=== PATIENT | male | born 1960 | race Caucasian/White ===

== ENCOUNTER 2020-10-23 09:19 | Emergency (ER) | payer BC, OTHER ==
--- OUTSIDE RECORDS SUMMARY | 2020-10-23 09:21 | XMS REPORT | Continuity of Care Document ---
:1960 Author Organization [facility] t Address [address] [place] [address] Care Team Providers Name Role Phone Jerardo To DO Attending Clinician Problems This patient has no known problems. Allergies, Adverse Reactions, Alerts This patient has no known allergies or adverse reactions. Medications Ordered Filled Start Stop Current Ordering Indication Dosage Frequency Signature Comments Components Source Medication Medication Date Date Medication? Clinician (SIG) Name Name Diclofenac Diclofenac 2018- 2019- No Mehrdad [address] [facility] Sodium Sodium 02-15 Aide with food Luke s - 00:00: 00:00 or milk Memoria 00 :00 [facility] Aspirin Aspirin Yes Mehrdad [address] [facility] Adult Low Adult Low Aide Luke s - Dose Dose [facility] Atorvastati Atorvastati Yes Mehrdad [address] [facility] n Calcium n Calcium Aide Luke s - [facility] Metoprolol Metoprolol Yes Mehrdad [address] [facility] Succinate Succinate Aide Luke s - ER ER [facility] l [facility] Clinics Olmesartan Olmesartan Yes Mehrdad [address] [facility] Medoxomil Medoxomil Aide Luke s - [facility]oria [facility] ent Clinics Procedures This patient has no known procedures. Encounters Start End Encounter Admission Attending Care Care Encounter Source Date/Time Date/Time Type Type Clinicians Facility Department ID 2020-10-16 2020-10-16 Outpatient [facility] [id number] [facility] 2020-10-11 2020-10-11 Outpatient [facility] [id number] [facility] 2020-09-27 2020-09-27 Outpatient [facility] [id number] [facility] 2020-07-07 2020-07-07 Emergency [facility] [id number] 16:50:00 17:37:00 Vicki Browne [id number] [place] [id number] [place] [id number] 2019-02-15 2019-02-15 [facility] [id number] 09:00:00 09:00:00 [facility] Clinics 2018-09-03 2018-09-03 [facility] [id number] 11:22:00 11:22:00 [facility] Out[facility] Clinics 2018-08-11 2018-08-11 [facility] [id number] [address] 10:00:00 10:00:00 [facility] Out[facility] Clinics 2018-02-09 2018-02-09 [facility] [id number] 10:00:00 10:00:00 [facility] Out[facility] Clinics Results This patient has no known results.
[2020-10-23 10:08] LABS: Absolute Lymphocytes (CBC) 0.5 K/uL (0.7-4.9); Basophils % 0.2 % (0-1.3); Hematocrit 33.1 % (39.6-49.0); Lymphocytes % 11.8 % (15.3-44.8); RBC Red Blood Cell Count 4.57 M/uL (4.33-5.43)
[2020-10-23] MEDS ORDERED: ONDANSETRON 4 MG/2 ML VIAL ONE (10:19)
[2020-10-23 10:23] LABS: Protime INR 1.26
[2020-10-23 10:29] LABS: ALT/SGPT 27 U/L (12-78); AST/SGOT 26 U/L (15-37); Albumin 3.4 g/dL (3.4-5.0); Alkaline Phosphatase 103 U/L (45-117); BUN Blood Urea Nitrogen 15 mg/dL (7-18); Bicarbonate 26 mmol/L (21-32); Bilirubin Direct 0.1 mg/dL (0-0.2); Bilirubin Total 0.4 mg/dL (0.2-1.0); CKMB Creatine Kinase MB < 1.0 ng/mL (0.3-3.6); Creatine Phosphokinase 69 U/L (39-308); Glucose Level 123 mg/dL (74-106); Lipase 476 U/L (73-393); Magnesium 2.1 mg/dL (1.8-2.4); Potassium 4.3 mmol/L (3.5-5.1); Protein, Total 7.6 g/dL (6.4-8.2); Sodium Level 133 mmol/L (136-145); Troponin (Emerg Dept Use Only) < 0.02 ng/mL (0.0-0.045)
[2020-10-23] MEDS ORDERED: NA CHLORIDE 0.9% 1,000 ML ONE (10:36)
--- NOTE | 2020-10-23 11:26 | EDPHYS ---
Physician Documentation [facility] Name: Omari Whitfield Age: 60 yrs Sex: Male : 1960 Arrival Date: 10/23/2020 Time: 09:24 Bed 16 Private MD: ED Physician Berny Marvin HPI: 10/23 10:34 This 60 yrs old Male presents to ER via EMS with complaints of Syncope, kb Nausea. 10:34 The patient has experienced near-syncope, felt dizzy. Onset: The symptoms/episode kb began/occurred just prior to arrival. Duration: This was a single episode, that lasted 1 minute(s). Context: the episode(s) was witnessed, by a significant other, occurred at home, occurred while the patient was walking, Just prior to the episode the patient experienced no apparent symptoms. Associated injury: The patient did not suffer any apparent associated injury. Associated signs and symptoms: Pertinent positives: dizziness, nausea. Current symptoms: Currently, the patient is not experiencing any symptoms. The patient has not experienced similar symptoms in the past. The patient has not recently seen a physician. Pt reports he was exposed to covid last week. Has had nausea, fatigue, and cough for a few days. States the cough is normal for him this time of year due to allergies. States he was walking through the house this morning and got dizzy, felt like he may pass out. States his brought him a chair and a cool cloth that helped the symptoms. States he had some dizziness last week as well, but more when he changed positions. Denies loc. . Historical: - Allergies: 09:30 No Known Allergies; ss - Home Meds: 09:30 Metoprolol Tartrate Oral [Active]; Benicar oral oral [Active]; unknown cholesterol ss medication [Active]; - PMHx: 09:30 Hypertension; High Cholesterol; ss - PSHx: 09:30 back surgery; ss - Immunization history:: Adult Immunizations unknown. - Social history:: Smoking status: Patient denies any tobacco usage or history of. ROS: 10:33 Cardiovascular: Negative for chest pain, palpitations, and edema, MS/Extremity: kb Negative for injury and deformity, Skin: Negative for injury, rash, and discoloration. 10:33 Constitutional: Positive for fatigue, malaise. 10:33 Respiratory: Positive for cough. 10:33 Abdomen/GI: Positive for nausea. 10:33 Neuro: Positive for near syncope. Exam: 10:33 Constitutional: This is a well developed, well nourished patient who is awake, alert, kb and in no acute distress. Head/Face: Normocephalic, atraumatic. Cardiovascular: Regular rate and rhythm with a normal S1 and S2. No gallops, murmurs, or rubs. No pulse deficits. Respiratory: Respirations even and unlabored. No increased work of breathing, no retractions or nasal flaring. Abdomen/GI: Soft, non-tender. No distention Skin: Warm, dry with normal turgor. Normal color. MS/ Extremity: Pulses equal, no cyanosis. Neurovascular intact. Full, normal range of motion. Neuro: Awake and alert, GCS 15, oriented to person, place, time, and situation. Moves all extremities. Normal gait. Vital Signs: 09:25 BP 128 / 83; Pulse 87; Resp 16; Temp 99.3(O); Pulse Ox 97% ; Weight 97.52 kg; Height 6 ss ft. 1 in. (185.42 cm); Pain 0/10; 10:28 BP 127 / 76 Supine; Pulse 87; hb 10:28 BP 117 / 81 Sitting; Pulse 82; hb 10:28 BP 92 / 57 Standing; Pulse 87; hb 11:42 BP 143 / 74; Pulse 81; Resp 20; Pulse Ox 98% ; sv 09:25 Body Mass Index 28.37 (97.52 kg, 185.42 cm) ss MDM: 09:25 Patient medically screened. kb 09:52 Data reviewed: vital signs, nurses notes. kb 10:29 Data interpreted: Pulse oximetry: on room air is 97 %. Interpretation: normal. kb 11:24 Counseling: I had a detailed discussion with the patient and/or guardian regarding: the kb historical points, exam findings, and any diagnostic results supporting the discharge/admit diagnosis, lab results, the need for outpatient follow up, a family practitioner, to return to the emergency department if symptoms worsen or persist or if there are any questions or concerns that arise at home. 11:30 ED course: Pt continues to deny abd pain. Reports some joint pains and requests kb toradol. Pt educated on increase in lipase and to return for worsening symptoms, abd pain, inability to tolerate PO intake. Verbal understanding received. . 10/23 09:34 Order name: Basic Metabolic Panel kb 10/23 09:34 Order name: CBC with Diff kb 10/23 09:34 Order name: Ckmb kb 10/23 09:34 Order name: CPK kb 10/23 09:34 Order name: Hepatic Function kb 10/23 09:34 Order name: Lipase kb 10/23 09:34 Order name: Magnesium kb 10/23 09:34 Order name: Protime (+inr); Complete Time: 11:02 kb 10/23 09:34 Order name: Ptt, Activated; Complete Time: 11:02 kb 10/23 09:34 Order name: Troponin (emerg Dept Use Only); Complete Time: 10:30 kb 10/23 09:34 Order name: Basic Metabolic Panel; Complete Time: 10:30 EDMS 10/23 09:34 Order name: CBC with Automated Diff; Complete Time: 10:26 EDMS 10/23 09:34 Order name: CKMB Creatine Kinase MB; Complete Time: 10:30 EDMS 10/23 09:34 Order name: EKG; Complete Time: 09:34 kb 10/23 09:34 Order name: Cardiac monitoring; Complete Time: 10:27 kb 10/23 09:34 Order name: EKG - Nurse/Tech; Complete Time: 10:27 kb 10/23 09:34 Order name: IV Saline Lock; Complete Time: 10:00 kb 10/23 09:34 Order name: Labs collected and sent; Complete Time: 10:00 kb 10/23 09:34 Order name: NPO; Complete Time: 10:00 kb 10/23 09:34 Order name: O2 Per Protocol; Complete Time: 10:00 kb 10/23 09:34 Order name: O2 Sat Monitoring; Complete Time: 10:00 kb 10/23 09:34 Order name: Creatine Phosphokinase; Complete Time: 10:30 EDMS 10/23 09:34 Order name: Liver (Hepatic) Function; Complete Time: 10:30 EDMS 10/23 09:34 Order name: Lipase; Complete Time: 10:30 EDMS 10/23 09:34 Order name: Magnesium; Complete Time: 10:30 EDMS 10/23 11:23 Order name: SARS-COV-2 RT PCR; Complete Time: 11:24 EDMS 10/23 09:34 Order name: Orthostatics; Complete Time: 10:27 kb Administered Medications: 10:28 Drug: Zofran (Ondansetron) 4 mg Route: IVP; Site: left antecubital; sv 11:41 Follow up: Response: No adverse reaction sv 10:28 Drug: NS 0.9% 1000 ml Route: IV; Rate: 1000 ml; Site: left antecubital; sv 11:43 Follow up: Response: No adverse reaction; IV Status: Completed infusion; IV Intake: sv 800ml 11:35 Drug: TORadol - Ketorolac 15 mg Route: IVP; Site: left antecubital; sv 11:41 Follow up: Response: No adverse reaction sv Disposition: 15:13 Co-signature as Attending Physician, Berny Marvin MD. rn Disposition: 10/23/20 11:24 Discharged to Home. Impression: Coronavirus infection, unspecified. - Condition is Stable. - Discharge Instructions: Viral Respiratory Infection, Owih-Uu-Axcc, COVID-19. - Prescriptions for Zofran 4 mg Oral Tablet - take 1 tablet by ORAL route every 6 hours As needed; 20 tablet. - Medication Reconciliation Form, Thank You Letter, Antibiotic Education, Prescription Opioid Use form. - Follow up: Emergency Department; When: As needed; Reason: Worsening of condition. Follow up: Private Physician; When: 2 - 3 days; Reason: Recheck today's complaints, Continuance of care, Re-evaluation by your physician. Signatures: Dispatcher [employer] [facility] Tianna Barnes, DIRECTOR OF CONVENTION SERVICES-C DIRECTOR OF CONVENTION SERVICES-CkJulieta Winston RN RN sv Nieto, Roman, MD MD rn Smirch, Shelby, RN RN Corrections: (The following items were deleted from the chart) 10: 09:34 CORONAVIRUS+BRZ ordered. [facility] 11:44 11:24 10/23/2020 11:24 Discharged to Home. Impression: Coronavirus infection, sv unspecified. Condition is Stable. Forms are Medication Reconciliation Form, Thank You Letter, Antibiotic Education, Prescription Opioid Use. Follow up: Emergency Department; When: As needed; Reason: Worsening of condition. Follow up: Private Physician; When: 2 - 3 days; Reason: Recheck today's complaints, Continuance of care, Re-evaluation by your physician. kb
--- NOTE | 2020-10-23 11:26 | ER ---
Nurse's Notes [facility] Name: Omari Whitfield Age: 60 yrs Sex: Male : 1960 Arrival Date: 10/23/2020 Time: 09:24 Bed 16 Private MD: Diagnosis: Coronavirus infection, unspecified Presentation: 10/23 09:25 Chief complaint: Patient states: near syncopal episode this morning. Fatigue and nausea ss that began 3 days ago. Denies cough/ fever. Pt reports that a week ago he had a known exposure to COVID. Coronavirus screen: Client denies travel out of the [place] in the last 14 days. Ebola Screen: Patient denies exposure to infectious person. Patient denies travel to an Ebola-affected area in the 21 days before illness onset. Initial Sepsis Screen: Does the patient meet any 2 criteria? No. Patient's initial sepsis screen is negative. Does the patient have a suspected source of infection? No. Patient's initial sepsis screen is negative. Risk Assessment: Do you want to hurt yourself or someone else? Patient reports no desire to harm self or others. Onset of symptoms was September 19, 2020. 09:25 Method Of Arrival: EMS: [facility] ss 09:25 Acuity: GETACHEW 3 ss Historical: - Allergies: :30 No Known Allergies; ss - Home Meds: 09:30 Metoprolol Tartrate Oral [Active]; Benicar oral oral [Active]; unknown cholesterol ss medication [Active]; - PMHx: 09:30 Hypertension; High Cholesterol; ss - PSHx: 09:30 back surgery; ss - Immunization history:: Adult Immunizations unknown. - Social history:: Smoking status: Patient denies any tobacco usage or history of. Screenin:34 Abuse screen: Denies threats or abuse. Denies injuries from another. Nutritional ss screening: No deficits noted. Tuberculosis screening: Never had TB. Fall Risk No fall in past 12 months (0 pts). Secondary diagnosis (15 points) near syncope. IV access (20 points). Ambulatory Aid- None/Bed Rest/Nurse Assist (0 pts). Gait- Normal/Bed Rest/Wheelchair (0 pts) Mental Status- Oriented to own ability (0 pts). Assessment: 09:34 General: Appears in no apparent distress. Behavior is calm, cooperative, Reports ss fatigue for 2-3 days, Denies fever, chills. Pain: Denies pain. Neuro: Level of Consciousness is awake, alert, obeys commands, Oriented to person, place, time, situation, Supervisor Correspondence Section are equal bilaterally Moves all extremities. Full function Gait is steady, Speech is normal, Facial symmetry appears normal, Pupils are PERRLA, Reports dizziness, since this morning when talking. Had to stop and lean against wall. grabbed a chair and a cool rag and it helped his symptoms. Cardiovascular: Capillary refill < 3 seconds is brisk in bilateral fingers Patient's skin is warm and dry. Chest pain is denied. Respiratory: Airway is patent Trachea midline Respiratory effort is even, unlabored, Respiratory pattern is regular, symmetrical. GI: Patient currently denies abdominal pain, diarrhea, nausea, vomiting. : No signs and/or symptoms were reported regarding the genitourinary system. EENT: Nares are clear Oral mucosa is moist. Derm: Skin is intact, is healthy with good turgor, Skin is dry, Skin is pink, warm \T\ dry. normal. Musculoskeletal: Circulation, motion, and sensation intact. Range of motion: intact in all extremities, Swelling absent. 10:29 Reassessment: Patient appears in no apparent distress at this time. Pt reported some hb dizziness while standing during orthostatics. REBECCA Wynn notified. Urinal at bedside. Pt verbalizes understanding use of urinal and reason for obtaining UA. 10:30 Reassessment: Patient appears in no apparent distress at this time. No changes from sv previously documented assessment. Patient and/or family updated on plan of care and expected duration. Pain level reassessed. Patient is alert, oriented x 3, equal unlabored respirations, skin warm/dry/pink. PT c/o dizziness when changing positions, not when laying in the bed. 11:42 Reassessment: Patient appears in no apparent distress at this time. Patient and/or sv family updated on plan of care and expected duration. Pain level reassessed. Patient is alert, oriented x 3, equal unlabored respirations, skin warm/dry/pink. Vital Signs: 09:25 BP 128 / 83; Pulse 87; Resp 16; Temp 99.3(O); Pulse Ox 97% ; Weight 97.52 kg; Height 6 ss ft. 1 in. (185.42 cm); Pain 0/10; 10:28 BP 127 / 76 Supine; Pulse 87; hb 10:28 BP 117 / 81 Sitting; Pulse 82; hb 10:28 BP 92 / 57 Standing; Pulse 87; hb 11:42 BP 143 / 74; Pulse 81; Resp 20; Pulse Ox 98% ; sv 09:25 Body Mass Index 28.37 (97.52 kg, 185.42 cm) ss ED Course: 09:24 Patient arrived in ED. ss 09:25 Tianna Barnes FNP-C is PHCP. kb 09:25 Berny Marvin MD is Attending Physician. kb 09:29 Triage completed. ss 09:30 Arm band placed on right wrist. ss 09:34 Patti Rogers, SHERRON is Primary Nurse. ss 09:34 Patient has correct armband on for positive identification. Bed in low position. Call ss light in reach. Side rails up X 1. quality assurance monitor on. Pulse ox on. NIBP on. Warm blanket given. 09:45 Inserted saline lock: 20 gauge in left antecubital area, using aseptic technique. Blood ss collected. Patient maintains SpO2 saturation greater than 95% on room air. 09:59 Primary Nurse role handed off by Patti Rogers, SHERRON sv 09:59 Julieta Lauren, SHERRON is Primary Nurse. sv 10:00 Basic Metabolic Panel Sent. sv 10:00 CBC with Diff Sent. sv 10:00 Ckmb Sent. sv 10:00 CPK Sent. sv 10:00 Hepatic Function Sent. sv 10:01 Lipase Sent. sv 10:01 Magnesium Sent. sv 11:43 No provider procedures requiring assistance completed. IV discontinued, intact, sv bleeding controlled, No redness/swelling at site. Pressure dressing applied. Administered Medications: 10:28 Drug: Zofran (Ondansetron) 4 mg Route: IVP; Site: left antecubital; sv 11:41 Follow up: Response: No adverse reaction sv 10:28 Drug: NS 0.9% 1000 ml Route: IV; Rate: 1000 ml; Site: left antecubital; sv 11:43 Follow up: Response: No adverse reaction; IV Status: Completed infusion; IV Intake: sv 800ml 11:35 Drug: TORadol - Ketorolac 15 mg Route: IVP; Site: left antecubital; sv 11:41 Follow up: Response: No adverse reaction sv Intake: 11:43 IV: 800ml; Total: 800ml. sv Outcome: 11:24 Discharge ordered by . kb 11:43 Discharged to home ambulatory. sv 11:43 Condition: stable 11:43 Discharge instructions given to patient, Instructed on discharge instructions, follow up and referral plans. medication usage, Demonstrated understanding of instructions, follow-up care, medications, Prescriptions given X 1. 11:44 Patient left the ED. sv Signatures: Tianna Barnes, ANGEL-Casey ORTIZ-Julieta Nye, RN RN sv Patti Rogers, SHERRON RN ss Kanika Jernigan, RN RN hb
[2020-10-23] MEDS ORDERED: KETOROLAC 30 MG/ML INJ ONE (11:50)
[2020-10-23 12:10] VITALS: BP 143/74
[2020-10-23 12:11] VITALS: O2SAT 98
[2020-10-23 12:40] VITALS: TEMP 97.7
== END 2020-10-23 11:44 | disposition home or self-care (01) ==
LOC: ER 09:19
DX: U07.1 COVID-19 (principal); I10 Essential (primary) hypertension; E78.00 Pure hypercholesterolemia, unspecified
CPT/HCPCS: 93005; 85025; 80048; 36415; 83735; 82550; 85610; 80076; 85730; 84484; 82553; 83690; U0003; J7030; J2405; 96361; 96374; 96375; 99285

== ENCOUNTER 2020-10-27 11:08 | Inpatient (IN) | payer BC ==
--- OUTSIDE RECORDS SUMMARY | 2020-10-27 11:11 | XMS REPORT | Continuity of Care Document ---
:1960 Author Organization [facility] t Address [address] [place] [address] Care Team Providers Name Role Phone Jerardo To DO Attending Clinician Problems This patient has no known problems. Allergies, Adverse Reactions, Alerts This patient has no known allergies or adverse reactions. Medications Ordered Filled Start Stop Current Ordering Indication Dosage Frequency Signature Comments Components Source Medication Medication Date Date Medication? Clinician (SIG) Name Name Diclofenac Diclofenac 2019- No Mehrdad [address] [facility] Sodium Sodium 02-15 Adie with food Luke s - 00:00: 00:00 or milk [facility]oria 00 :00 [facility] Aspirin Aspirin Yes Mehrdad [address] [facility] Adult Low Adult Low Aide Luke s - Dose Dose [facility] Atorvastati Atorvastati Yes Mehrdad [address] [facility] n Calcium n Calcium Aide Luke s - [facility] Metoprolol Metoprolol Yes Mehrdad [address] [facility] Succinate Succinate Aide Luke s - ER ER Memoria l [facility] ent Clinics Olmesartan Olmesartan Yes Mehrdad [address] [facility] Medoxomil Medoxomil Aide Luke s - [facility] Procedures This patient has no known procedures. Encounters Start End Encounter Admission Attending Care Care Encounter Source Date/Time Date/Time Type Type Clinicians Facility Department ID 2020-10-16 2020-10-16 Outpatient [facility] [id number] [facility] 2020-10-11 2020-10-11 Outpatient [facility] [id number] [facility] 2020-09-27 2020-09-27 Outpatient [facility] [id number] [facility] 2020-07-07 2020-07-07 Emergency [facility] [id number] 16:50:00 17:37:00 Vicki Browne [id number] [place] [id number] [place] [id number] 2019-02-15 2019-02-15 [facility] [id number] [facility] 09:00:00 09:00:00 [facility] Out[facility] Clinics 2018-09-03 2018-09-03 [facility] [id number] [facility] 11:22:00 11:22:00 [facility] Clinics 2018-08-11 2018-08-11 [facility] [id number] [facility] 10:00:00 10:00:00 [facility] Out[facility] Clinics 2018-02-09 2018-02-09 [facility] [id number] [facility] 10:00:00 10:00:00 [facility] Clinics Results This patient has no known results.
[2020-10-27] MEDS ORDERED: NA CHLORIDE 0.9% 1,000 ML ONE (11:37)
[2020-10-27 11:40] LABS: Absolute Lymphocytes (CBC) 0.3 K/uL (0.7-4.9); Basophils % 0.1 % (0-1.3); Hematocrit 32.1 % (39.6-49.0); Lymphocytes % 3.4 % (15.3-44.8); MPV 8.9 fL (7.6-11.3); RBC Red Blood Cell Count 4.44 M/uL (4.33-5.43)
[2020-10-27] MEDS ORDERED: ONDANSETRON 4 MG/2 ML VIAL ONE ×2 (11:41→14:09)
[2020-10-27 11:55] LABS: Protime INR 1.26
--- NOTE | 2020-10-27 11:56 | RAD REPORT ---
EXAM DESCRIPTION: RAD - Chest Single View - 10/27/2020 11:45 am CLINICAL HISTORY: Cough;Dyspnea, COVID positive COMPARISON: July 2018 TECHNIQUE: AP portable chest image was obtained 10/27/2020 11:45 am . FINDINGS: Lung volumes are low. Patchy interstitial and alveolar opacities are present in both lung samano with relative sparing of the left upper lung field. Heart size matches comparison. Central vas culature within normal limits. Trachea is midline. No measurable pleural effusion and no pneumothorax . No acute bony abnormality seen. No acute aortic findings suspected. IMPRESSION: Patchy bilateral lung space opacification consistent with a bilateral mild COVID-19 pneu monia.
--- NOTE | 2020-10-27 11:56 | EDPHYS ---
Physician Documentation [facility] Name: Omari Whitfield Age: 60 yrs Sex: Male : 1960 Arrival Date: 10/27/2020 Time: 11:10 Bed 6 Private MD: ED Physician Kam Gustafson HPI: 10/27 11:40 This 60 yrs old Male presents to ER via Ambulatory with complaints of COVID+, mariia Breathing Difficulty, Fever. 11:40 The patient has shortness of breath at rest, with light activity. Onset: The mariia symptoms/episode began/occurred 5 day(s) ago. Duration: The symptoms are continuous, and are steadily getting worse. The patient's shortness of breath is aggravated by coughing, exertion, light activity, prone position, talking, walking, is alleviated by sitting up, application of supplemental oxygen. Associated signs and symptoms: Pertinent positives: productive cough. Severity of symptoms: At their worst the symptoms were moderate in the emergency department the symptoms are unchanged. The patient has not experienced similar symptoms in the past. Historical: - Allergies: 11:33 No Known Allergies; sv - PMHx: 11:33 High Cholesterol; Hypertension; sv - PSHx: 11:33 back surgery; sv - Immunization history:: Adult Immunizations up to date. - Social history:: Smoking status: . ROS: 11:42 Eyes: Negative for injury, pain, redness, and discharge, ENT: Negative for injury, mariia pain, and discharge, Neck: Negative for injury, pain, and swelling, Cardiovascular: Negative for chest pain, palpitations, and edema, Abdomen/GI: Negative for abdominal pain, nausea, vomiting, diarrhea, and constipation, Back: Negative for injury and pain, : Negative for injury, bleeding, discharge, and swelling, MS/Extremity: Negative for injury and deformity, Skin: Negative for injury, rash, and discoloration, Neuro: Negative for headache, weakness, numbness, tingling, and seizure, Psych: Negative for depression, anxiety, suicide ideation, homicidal ideation, and hallucinations, Allergy/Immunology: Negative for hives, rash, and allergies, Endocrine: Negative for neck swelling, polydipsia, polyuria, polyphagia, and marked weight changes, Hematologic/Lymphatic: Negative for swollen nodes, abnormal bleeding, and unusual bruising. 11:42 Constitutional: Positive for fever. 11:42 Respiratory: Positive for cough, orthopnea, pleurisy, shortness of breath, at rest. Exam: 11:44 Head/Face: Normocephalic, atraumatic. Eyes: Pupils equal round and reactive to light, mariia extra-ocular motions intact. Lids and lashes normal. Conjunctiva and sclera are non-icteric and not injected. Cornea within normal limits. Periorbital areas with no swelling, redness, or edema. ENT: Nares patent. No nasal discharge, no septal abnormalities noted. Tympanic membranes are normal and external auditory canals are clear. Oropharynx with no redness, swelling, or masses, exudates, or evidence of obstruction, uvula midline. Mucous membranes moist. Neck: Trachea midline, no thyromegaly or masses palpated, and no cervical lymphadenopathy. Supple, full range of motion without nuchal rigidity, or vertebral point tenderness. No Meningismus. Chest/axilla: Normal chest wall appearance and motion. Nontender with no deformity. No lesions are appreciated. Abdomen/GI: Soft, non-tender, with normal bowel sounds. No distension or tympany. No guarding or rebound. No evidence of tenderness throughout. Back: No spinal tenderness. No costovertebral tenderness. Full range of motion. Male : Normal genitalia with no discharge or lesions. Skin: Warm, dry with normal turgor. Normal color with no rashes, no lesions, and no evidence of cellulitis. MS/ Extremity: Pulses equal, no cyanosis. Neurovascular intact. Full, normal range of motion. Neuro: Awake and alert, GCS 15, oriented to person, place, time, and situation. Cranial nerves II-XII grossly intact. Motor strength 5/5 in all extremities. Sensory grossly intact. Cerebellar exam normal. Normal gait. Psych: Awake, alert, with orientation to person, place and time. Behavior, mood, and affect are within normal limits. 11:44 Cardiovascular: Rate: normal, Rhythm: regular, Pulses: Pulses are 4+ in bilateral radial, brachial, femoral, popliteal, posterior tibial and and dorsalis pedis arteries.. Heart sounds: normal, normal S1and S2, no S3 or S4, no murmur, no rub, no gallop, Edema: is not appreciated, JVD: is not appreciated. 11:44 ECG was reviewed by the Attending Physician. 11:44 Musculoskeletal/extremity: DVT Exam: No signs of deep vein thrombosis. no pain, no swelling, no tenderness, negative Homans' sign noted on exam, no appreciated bluish discoloration, no erythema, no increased warmth. Vital Signs: 11:13 BP 132 / 70; Pulse 84; Resp 20; Temp 101.1(O); Pulse Ox 96% on R/A; sv 11:45 BP 134 / 75; Pulse 80; Resp 21; Pulse Ox 97% on R/A; sv 11:58 Weight 91 kg; Height 6 ft. 1 in. (185.42 cm); sv 12:30 BP 132 / 72; Pulse 80; Resp 20; Pulse Ox 97% ; sv 13:15 BP 128 / 72; Pulse 77; Resp 20; Pulse Ox 97% on R/A; sv 14:20 BP 115 / 60; Pulse 81; Resp 23; Pulse Ox 95% on R/A; sv 11:58 Body Mass Index 26.47 (91.00 kg, 185.42 cm) sv MDM: 11:15 Patient medically screened. [facility] 10/27 11:13 Order name: Basic Metabolic Panel mariia 10/27 11:13 Order name: CBC with Diff mariia 10/27 11:13 Order name: LFT's 10/27 11:13 Order name: Magnesium; Complete Time: 12:26 [facility] 10/27 11:13 Order name: NT PRO-BNP; Complete Time: 12:26 [facility] 10/27 11:13 Order name: PT-INR; Complete Time: 12:26 [facility] 10/27 11:13 Order name: Troponin (emerg Dept Use Only); Complete Time: 12:26 [facility] 10/27 11:13 Order name: Blood Culture Adult (2) 10/27 11:13 Order name: Ferritin; Complete Time: 12:26 [facility] 10/27 11:13 Order name: CRP; Complete Time: 12:26 [facility] 10/27 11:14 Order name: Basic Metabolic Panel; Complete Time: 12:26 [facility] 10/27 11:14 Order name: CBC with Automated Diff; Complete Time: 12:26 [facility] 10/27 11:14 Order name: Liver (Hepatic) Function; Complete Time: 12:26 [facility] 10/27 11:43 Order name: CBC Smear Scan; Complete Time: 12:26 [facility] 10/27 13:14 Order name: C-Reactive Protein ED[facility] 10/27 13:14 Order name: C-Reactive Protein EDMS 10/27 13:14 Order name: Comprehensive Metabolic Panel ED[facility] 10/27 13:14 Order name: Comprehensive Metabolic Panel ED[facility] 10/27 13:14 Order name: D-Dimer EDMS 10/27 13:14 Order name: D-Dimer EDMS 10/27 13:14 Order name: Ferritin EDMS 10/27 13:14 Order name: Ferritin EDMS 10/27 13:14 Order name: Lactate EDMS 10/27 13:14 Order name: Lactate EDMS 10/27 13:14 Order name: Lipid Profile EDMS 10/27 13:14 Order name: Lipid Profile EDMS 10/27 13:14 Order name: Magnesium EDMS 10/27 13:14 Order name: Magnesium EDMS 10/27 13:14 Order name: NT PRO-BNP EDMS 10/27 13:14 Order name: NT PRO-BNP EDMS 10/27 11:13 Order name: XRAY Chest (1 view); Complete Time: 12:26 mariia 10/27 11:13 Order name: EKG; Complete Time: 11:16 10/27 11:13 Order name: Cardiac monitoring; Complete Time: 11:29 10/27 11:13 Order name: EKG - Nurse/Tech; Complete Time: 11:29 10/27 11:13 Order name: IV Saline Lock; Complete Time: 11:29 10/27 11:13 Order name: Labs collected and sent; Complete Time: 11:30 10/27 11:13 Order name: O2 Per Protocol; Complete Time: 11:30 10/27 11:13 Order name: O2 Sat Monitoring; Complete Time: 11:30 10/27 12:26 Order name: CT Chest For PE Angio; Complete Time: 13:34 10/27 13:14 Order name: Phosphorus EDMS 10/27 13:14 Order name: Phosphorus EDMS 10/27 13:14 Order name: Regular EDMS EC:44 Rate is 82 beats/min. Rhythm is regular. QRS [place] is Normal. [place] interval is normal. QRS mariia interval is normal. QT interval is normal. No Q waves. T waves are Normal. No ST changes noted. Clinical impression: Normal ECG and No evidence of ischemia. Interpreted by me. Reviewed by me. Administered Medications: 11:28 Drug: Zofran (Ondansetron) 4 mg Route: IVP; Site: right antecubital; sv 11:58 Follow up: Response: No adverse reaction; Marked relief of symptoms; Nausea is decreasedsv 11:29 Drug: NS 0.9% 1000 ml Route: IV; Rate: 125 ml/hr; Site: right antecubital; sv 11:43 Not Given (Duplicate Order): Pepcid (famotidine) 20 mg IVP once; dilute with 10 mL 0.9% mariia NaCl; give over 2 minutes 11:57 Drug: Decadron - Dexamethasone 10 mg Route: IVP; Site: right antecubital; sv 12:13 Follow up: Response: No adverse reaction sv 11:57 Drug: NS 0.9% 500 ml Route: IV; Rate: bolus; Site: right antecubital; sv 12:45 Follow up: Response: No adverse reaction; IV Status: Completed infusion; IV Intake: sv 500ml 11:57 Drug: Albuterol HFA Inhaler 4 puffs Route: Inhalation; sv 11:58 Drug: Rocephin - (cefTRIAXone) 1 grams Route: IVPB; Infused Over: 30 mins; Site: right sv antecubital; 12:00 Follow up: Response: No adverse reaction; IV Status: Completed infusion; IV Intake: sv 10ml ; given IVP per pharmacy 11:58 Drug: Lovenox (enoxaparin) 1 mg/kg Route: Sub-Q; Site: right lower abdomen; sv 12:14 Follow up: Response: No adverse reaction sv 11:58 Drug: Pepcid (famotidine) 40 mg Route: IVP; Site: right antecubital; sv 12:14 Follow up: Response: No adverse reaction sv 12:29 Drug: Zithromax (azithromycin) 500 mg Route: IVPB; Infused Over: 1 hrs; Site: right sv antecubital; 13:54 Drug: Zofran (Ondansetron) 4 mg Route: IVP; Site: right antecubital; sv 17:38 Follow up: Response: No adverse reaction; Marked relief of symptoms sv 14:44 Drug: Tylenol 1000 mg Route: PO; ss 15:00 Follow up: Response: No adverse reaction sv 14:44 Drug: Aspirin 325 mg Route: PO; ss 15:00 Follow up: Response: No adverse reaction sv Disposition: 10/27/20 11:55 Hospitalization ordered by Gab Hdz for Inpatient Admission. Preliminary diagnosis are Other viral pneumonia - covid 19, Fever, unspecified, Weakness, Dyspnea. - Bed requested for Intensive Care Unit. - Status is Inpatient Admission. sv - Condition is Fair. - Problem is new. - Symptoms have improved. Signatures: Dispatcher [employer] EDJulieta Dorman RN RN Kam Gustafson MD MD cha Smirch, Shelby, RN RN Milena Johnson Corrections: (The following items were deleted from the chart) 14:18 11:55 Hospitalization Ordered by Gab Hdz MD for Inpatient Admission. Preliminary eb diagnosis is Other viral pneumonia - covid 19; Fever, unspecified; Weakness; Dyspnea. Bed requested for Telemetry/MedSurg (Inpatient). Status is Inpatient Admission. Condition is Fair. Problem is new. Symptoms have improved. mariia 15:12 14:18 10/27/2020 11:55 Hospitalization Ordered by Gab Hdz MD for Inpatient sv Admission. Preliminary diagnosis is Other viral pneumonia - covid 19; Fever, unspecified; Weakness; Dyspnea. Bed requested for Intensive Care Unit. Status is Inpatient Admission. Condition is Fair. Problem is new. Symptoms have improved. eb
--- NOTE | 2020-10-27 11:56 | ER ---
Nurse's Notes [facility] Name: Omari Whitfield Age: 60 yrs Sex: Male : 1960 Arrival Date: 10/27/2020 Time: 11:10 Bed 6 Private MD: Diagnosis: Other viral pneumonia-covid 19;Fever, unspecified;Weakness;Dyspnea Presentation: 10/27 11:13 Chief complaint: Patient states: COVID + Friday, since then has been having nausea, sv dyspnea, lightheadedness and fever that hasn't improved. Coronavirus screen: Client presents with at least one sign or symptom that may indicate coronavirus-19. Standard/surgical mask placed on the client. Provider contacted for isolation considerations. Client reports previous positive COVID test result. Ebola Screen: No symptoms or risks identified at this time. Risk Assessment: Do you want to hurt yourself or someone else? Patient reports no desire to harm self or others. Onset of symptoms was October 23, 2020. 11:13 Method Of Arrival: Ambulatory sv 11:13 Acuity: GETACHEW 2 sv 11:13 Initial Sepsis Screen: Does the patient meet any 2 criteria? Temp <36.0*C (96.8*F)) or sv > 38.3*C (100.9*F). No. Patient's initial sepsis screen is negative. Does the patient have a suspected source of infection? Yes: Other: COVID. Triage Assessment: 11:13 General: Appears in no apparent distress. uncomfortable, slender, well groomed, well sv developed, well nourished, Behavior is calm, cooperative, appropriate for age. Pain: Denies pain. Neuro: Level of Consciousness is awake, alert, obeys commands, Oriented to person, place, time, situation, Moves all extremities. Full function Gait is steady, Speech is normal, Reports dizziness. Cardiovascular: Pulses are palpable in right radial artery and left radial artery Rhythm is sinus rhythm. Respiratory: Reports shortness of breath at rest on exertion cough that is non-productive, Airway is patent Respiratory effort is even, unlabored, Respiratory pattern is regular, symmetrical, Onset: The symptoms/episode began/occurred Friday, the patient has mild shortness of breath. GI: Reports intolerance of food, nausea, Patient currently denies diarrhea, vomiting. Derm: Skin is intact, Skin is pink, warm \T\ dry. Musculoskeletal: Circulation, motion, and sensation intact. Range of motion: intact in all extremities. Historical: - Allergies: 11:33 No Known Allergies; sv - PMHx: 11:33 High Cholesterol; Hypertension; sv - PSHx: 11:33 back surgery; sv - Immunization history:: Adult Immunizations up to date. - Social history:: Smoking status: . Screenin:33 Abuse screen: Denies threats or abuse. Denies injuries from another. Nutritional sv screening: No deficits noted. Tuberculosis screening: No symptoms or risk factors identified. Fall Risk None identified. Assessment: 11:58 Reassessment: Patient appears in no apparent distress at this time. Patient and/or sv family updated on plan of care and expected duration. Pain level reassessed. Patient is alert, oriented x 3, equal unlabored respirations, skin warm/dry/pink. Patient states feeling better. Patient states symptoms have improved. 12:29 Reassessment: Patient appears in no apparent distress at this time. Patient and/or sv family updated on plan of care and expected duration. Pain level reassessed. Patient is alert, oriented x 3, equal unlabored respirations, skin warm/dry/pink. Patient states feeling better. Patient states symptoms have improved. 13:54 Reassessment: Patient appears in no apparent distress at this time. Patient and/or sv family updated on plan of care and expected duration. Pain level reassessed. Patient is alert, oriented x 3, equal unlabored respirations, skin warm/dry/pink. GI: Reports nausea. 14:38 Reassessment: Patient appears in no apparent distress at this time. Patient and/or sv family updated on plan of care and expected duration. Pain level reassessed. Patient is alert, oriented x 3, equal unlabored respirations, skin warm/dry/pink. Patient states feeling better. Patient states symptoms have improved. Vital Signs: 11:13 BP 132 / 70; Pulse 84; Resp 20; Temp 101.1(O); Pulse Ox 96% on R/A; sv 11:45 BP 134 / 75; Pulse 80; Resp 21; Pulse Ox 97% on R/A; sv 11:58 Weight 91 kg; Height 6 ft. 1 in. (185.42 cm); sv 12:30 BP 132 / 72; Pulse 80; Resp 20; Pulse Ox 97% ; sv 13:15 BP 128 / 72; Pulse 77; Resp 20; Pulse Ox 97% on R/A; sv 14:20 BP 115 / 60; Pulse 81; Resp 23; Pulse Ox 95% on R/A; sv 11:58 Body Mass Index 26.47 (91.00 kg, 185.42 cm) sv ED Course: 11:10 Patient arrived in ED. mr 11:11 Kam Gustafson MD is Attending Physician. mariia 11:13 Arm band placed on Patient placed in an exam room, on a stretcher, on olive grader, sv on pulse oximetry. 11:15 Patient has correct armband on for positive identification. Placed in gown. Bed in low sv position. Call light in reach. senior radiation therapist on. Pulse ox on. NIBP on. Door closed. Head of bed elevated. 11:16 Julieta Lauren, SHERRON is Primary Nurse. sv 11:20 First set of blood cultures drawn by me. Inserted saline lock: 20 gauge in right sv antecubital area, using aseptic technique. Blood collected. Flushed right antecubital with 5 ml normal saline. 11:30 Basic Metabolic Panel Sent. sv 11:30 CBC with Diff Sent. sv 11:30 LFT's Sent. sv 11:31 Triage completed. sv 11:34 X-ray(s) taken. sv 11:36 ED physician to see patient. sv 11:45 XRAY Chest (1 view) In Process Unspecified. EDMS 11:45 Gab Hdz MD is Hospitalizing Provider. mariia 12:[address] via stretcher. sv 12:54 CT Chest For PE Angio In Process Unspecified. EDMS 14:38 No provider procedures requiring assistance completed. Patient admitted, IV remains in sv place. intact. Administered Medications: 11:28 Drug: Zofran (Ondansetron) 4 mg Route: IVP; Site: right antecubital; sv 11:58 Follow up: Response: No adverse reaction; Marked relief of symptoms; Nausea is decreasedsv 11:29 Drug: NS 0.9% 1000 ml Route: IV; Rate: 125 ml/hr; Site: right antecubital; sv 11:43 Not Given (Duplicate Order): Pepcid (famotidine) 20 mg IVP once; dilute with 10 mL 0.9% mariia NaCl; give over 2 minutes 11:57 Drug: Decadron - Dexamethasone 10 mg Route: IVP; Site: right antecubital; sv 12:13 Follow up: Response: No adverse reaction sv 11:57 Drug: NS 0.9% 500 ml Route: IV; Rate: bolus; Site: right antecubital; sv 12:45 Follow up: Response: No adverse reaction; IV Status: Completed infusion; IV Intake: sv 500ml 11:57 Drug: Albuterol HFA Inhaler 4 puffs Route: Inhalation; sv 11:58 Drug: Rocephin - (cefTRIAXone) 1 grams Route: IVPB; Infused Over: 30 mins; Site: right sv antecubital; 12:00 Follow up: Response: No adverse reaction; IV Status: Completed infusion; IV Intake: sv 10ml ; given IVP per pharmacy 11:58 Drug: Lovenox (enoxaparin) 1 mg/kg Route: Sub-Q; Site: right lower abdomen; sv 12:14 Follow up: Response: No adverse reaction sv 11:58 Drug: Pepcid (famotidine) 40 mg Route: IVP; Site: right antecubital; sv 12:14 Follow up: Response: No adverse reaction sv 12:29 Drug: Zithromax (azithromycin) 500 mg Route: IVPB; Infused Over: 1 hrs; Site: right sv antecubital; 13:54 Drug: Zofran (Ondansetron) 4 mg Route: IVP; Site: right antecubital; sv 17:38 Follow up: Response: No adverse reaction; Marked relief of symptoms sv 14:44 Drug: Tylenol 1000 mg Route: PO; ss 15:00 Follow up: Response: No adverse reaction sv 14:44 Drug: Aspirin 325 mg Route: PO; ss 15:00 Follow up: Response: No adverse reaction sv Intake: 12:00 IV: 10ml; Total: 10ml. sv 12:45 IV: 500ml; Total: 510ml. sv Outcome: 11:55 Decision to Hospitalize by Provider. [facility] 14:39 Admitted to ICU accompanied by tech, via wheelchair, room icu 2, with chart, Report sv called to Irma RN 14:39 Condition: stable 14:39 Instructed on the need for admit. 15:12 Patient left the ED. sv Signatures: Dispatcher [employer] EDMS Leonidas, Julieta, RN RN sv Kam Gustafson MD MD cha Rivera, Roxana mr Patti Rogers, SHERRON RN ss Corrections: (The following items were deleted from the chart) 11:33 11:13 Chief complaint: Patient states: COVID + Friday, since then has been having sv nausea, dyspnea and fever that hasn't improved. sv 11:34 11:13 Initial Sepsis Screen: Does the patient meet any 2 criteria? RR > 20 per min. sv Temp <36.0*C (96.8*F)) or > 38.3*C (100.9*F). Yes Does the patient have a suspected source of infection? Yes: Other: COVID sv 11:34 11:13 Pulse 84bpm; Resp 30bpm; Pulse Ox 96% RA; Temp 101.1F Oral; sv sv 17:38 14:30 Response: No adverse reaction sv sv
[2020-10-27] MEDS ORDERED: AZITHROMYCIN IV 500 MG in NA CHLORIDE 0.9% 250 ML IVPB ONE (12:00)
[2020-10-27] MEDS ORDERED: ACETAMINOPHEN 500 MG TAB ONE (12:03)
[2020-10-27] MEDS ORDERED: NA CHLORIDE 0.9% 500 ML ONE (12:03)
[2020-10-27] MEDS ORDERED: CEFTRIAXONE/SWI 1gm 1 GM/10 ML SYR ONE (12:03)
[2020-10-27] MEDS ORDERED: FAMOTIDINE 20 MG/2 ML VIAL IV ONE ×2 (12:03→12:19)
[2020-10-27] MEDS ORDERED: dexAMETHasone 10 MG/ML VIAL ONE (12:03)
[2020-10-27] MEDS ORDERED: ALBUTEROL INHALER 60 PUFF/8 GM IH ONE (12:04)
[2020-10-27 12:18] LABS: Platelet Estimate ADEQ; White Blood Cell Scan OK (OK)
[2020-10-27 12:19] LABS: Blood Morphology Comment NOT SEEN (NOT SEEN); Platelets, Giant PRESENT
[2020-10-27] MEDS ORDERED: ENOXAPARIN 100 MG/ML SYR SQ ONE (12:19)
[2020-10-27] MEDS ORDERED: ASPIRIN EC 325 MG TABLET PO ONE (12:19)
[2020-10-27 12:21] LABS: ALT/SGPT 50 U/L (12-78); AST/SGOT 38 U/L (15-37); Albumin 3.1 g/dL (3.4-5.0); Alkaline Phosphatase 91 U/L (45-117); BUN Blood Urea Nitrogen 14 mg/dL (7-18); Bicarbonate 25 mmol/L (21-32); Bilirubin Direct 0.2 mg/dL (0-0.2); Bilirubin Total 0.5 mg/dL (0.2-1.0); Ferritin 70.2 ng/mL (26-388); Glucose Level 121 mg/dL (74-106); Magnesium 2.1 mg/dL (1.8-2.4); NT PRO-BNP 143 pg/mL (<125); Protein, Total 7.4 g/dL (6.4-8.2); Sodium Level 132 mmol/L (136-145); Troponin (Emerg Dept Use Only) < 0.02 ng/mL (0.0-0.045)
--- NOTE | 2020-10-27 13:05 | RAD REPORT ---
EXAM DESCRIPTION: CT - Chest For Pe Angio - 10/27/2020 12:54 pm CLINICAL HISTORY: Chest pain. Chest pain;Cough;Dyspnea COMPARISON: No comparisons TECHNIQUE: CT angiogram of the pulmonary arteries was performed with MIP. All CT scans are performed using dose optimization technique as appropriate and may include automated exposure control or mA/KV adjustment according to patient size. FINDINGS: No evidence of pulmonary thromboembolism. No acute aortic finding demonstrated. Moderate areas airspace consolidation and interstitial air opacity seen posterior segments of both up per lobes as well as posterior segment of both lower lobes. Small hiatal hernia. No significant pericardial or pleural fluid. No concerning bony finding. IMPRESSION: No evidence of pulmonary thromboembolism. Moderate alveolar and interstitial lung opacities bilaterally as detailed likely related to infection /pneumonia.
[2020-10-27] MEDS: CEFTRIAXONE/SWI 1gm 1 GM/10 ML SYR IVP SCH (21:11)
[2020-10-27] MEDS: FAMOTIDINE 20 MG/2 ML VIAL IV SCH (21:11)
[2020-10-27] MEDS: METHYLPREDNISOLONE 40 MG INJ IV SCH (21:11)
[2020-10-27] MEDS: APIXABAN 5 MG TABLET PO SCH (21:12)
[2020-10-28 05:06] LABS: Absolute Lymphocytes (CBC) 0.5 K/uL (0.7-4.9); Basophils % 0.3 % (0-1.3); Hematocrit 32.1 % (39.6-49.0); Lymphocytes % 5.6 % (15.3-44.8); MPV 8.7 fL (7.6-11.3); RBC Red Blood Cell Count 4.42 M/uL (4.33-5.43)
[2020-10-28 05:51] LABS: ALT/SGPT 47 U/L (12-78); AST/SGOT 26 U/L (15-37); Albumin 2.9 g/dL (3.4-5.0); Alkaline Phosphatase 90 U/L (45-117); BUN Blood Urea Nitrogen 15 mg/dL (7-18); Bicarbonate 27 mmol/L (21-32); Bilirubin Total 0.4 mg/dL (0.2-1.0); Ferritin 90.6 ng/mL (26-388); Glucose Level 143 mg/dL (74-106); HDL Cholesterol 48 mg/dL (40-60); LDL Cholesterol, Calculated 75 (<130); Magnesium 2.4 mg/dL (1.8-2.4); NT PRO-BNP 137 pg/mL (<125); Phosphorus 4.2 mg/dL (2.5-4.9); Potassium 4.4 mmol/L (3.5-5.1); Protein, Total 7.1 g/dL (6.4-8.2); Sodium Level 134 mmol/L (136-145)
[2020-10-28 06:40] VITALS: BMI 25.8
[2020-10-28] MEDS: APIXABAN 5 MG TABLET PO SCH ×2 (08:16→20:09)
[2020-10-28] MEDS: CEFTRIAXONE/SWI 1gm 1 GM/10 ML SYR IVP SCH ×2 (08:16→20:09)
[2020-10-28] MEDS: FAMOTIDINE 20 MG/2 ML VIAL IV SCH ×2 (08:17→20:09)
[2020-10-28] MEDS: METHYLPREDNISOLONE 40 MG INJ IV SCH ×2 (08:17→20:09)
[2020-10-28] MEDS: ONDANSETRON 4 MG/2 ML VIAL IV PRN ×2 (17:14→22:38)
[2020-10-28] MEDS: ACETAMINOPHEN 500 MG TAB PO PRN ×2 (17:23→22:37)
[2020-10-28] MEDS ORDERED: ONDANSETRON 4 MG/2 ML VIAL IV ONE (20:01)
[2020-10-29 04:57] LABS: Absolute Lymphocytes (CBC) 0.4 K/uL (0.7-4.9); Basophils % 0.1 % (0-1.3); Hematocrit 30.3 % (39.6-49.0); MPV 9.2 fL (7.6-11.3)
[2020-10-29 05:22] LABS: Albumin 2.6 g/dL (3.4-5.0); Bilirubin Total 0.4 mg/dL (0.2-1.0); C-Reactive Protein 29.7 mg/L (<3.00); Magnesium 2.4 mg/dL (1.8-2.4); Phosphorus 4.6 mg/dL (2.5-4.9); Potassium 4.5 mmol/L (3.5-5.1); Protein, Total 6.5 g/dL (6.4-8.2)
[2020-10-29] MEDS: CEFTRIAXONE/SWI 1gm 1 GM/10 ML SYR IVP SCH ×2 (09:37→20:10)
[2020-10-29] MEDS: METHYLPREDNISOLONE 40 MG INJ IV SCH ×2 (09:37→20:10)
[2020-10-29] MEDS: FAMOTIDINE 20 MG/2 ML VIAL IV SCH ×2 (09:37→20:09)
[2020-10-29] MEDS: APIXABAN 5 MG TABLET PO SCH ×2 (09:55→20:10)
--- NOTE | 2020-10-29 11:10 | RAD REPORT ---
EXAM DESCRIPTION: RAD - Chest Single View - 10/29/2020 6:36 am CLINICAL HISTORY: pneumonia Chest pain. COMPARISON: Chest Single View dated 10/27/2020; Chest Pa And Lat (2 Views) dated 08/20/2018; ABDOMEN 1 VIEW KUB dated 11/02/2012; Chest For Pe Angio dated 10/27/2020 FINDINGS: Portable technique limits examination quality. Mild bilateral pulmonary opacities appears slightly worse since the comparative study. The heart is u pper limit of normal in size. No displaced fractures. IMPRESSION: Slight worsening in lung aeration seen, particularly in the right base, since prior stud y.
[2020-10-29] MEDS: ENSURE HIGH PROTEIN 237 ML CAN PO SCH (20:10)
[2020-10-30 03:58] LABS: Absolute Lymphocytes (CBC) 0.5 K/uL (0.7-4.9); Basophils % 0.2 % (0-1.3); Hematocrit 28.9 % (39.6-49.0); Lymphocytes % 5.8 % (15.3-44.8); MPV 9.3 fL (7.6-11.3); RBC Red Blood Cell Count 4.03 M/uL (4.33-5.43)
[2020-10-30 04:18] LABS: ALT/SGPT 35 U/L (12-78); AST/SGOT 18 U/L (15-37); Albumin 2.6 g/dL (3.4-5.0); Alkaline Phosphatase 75 U/L (45-117); BUN Blood Urea Nitrogen 18 mg/dL (7-18); Bicarbonate 27 mmol/L (21-32); Bilirubin Total 0.3 mg/dL (0.2-1.0); Ferritin 95.7 ng/mL (26-388); Glucose Level 149 mg/dL (74-106); Magnesium 2.4 mg/dL (1.8-2.4); Phosphorus 4.1 mg/dL (2.5-4.9); Potassium 4.8 mmol/L (3.5-5.1); Protein, Total 6.7 g/dL (6.4-8.2); Sodium Level 133 mmol/L (136-145)
--- NOTE | 2020-10-30 06:05 | P.HP ---
Certification for Inpatient Patient admitted to: Inpatient With expected LOS: >2 Midnights Patient will require the following post-hospital care: None Practitioner: I am a practitioner with admitting privileges, knowledge of patient current condition, hospital course, and medical plan of care. Services: Services provided to patient in accordance with Admission requirements found in Title 42 Section 412.3 of the Code of Federal Regulations Patient History Date of Service: 10/27/20 Reason for admission: COVID-19 pneumonia History of Present Illness: Patient is a 60-year-old gentleman who came to the hospital with COVID-19 pneumonia. Patient was here about a week ago. Patient's clinical symptoms have not really improved. The family states he has has been getting worse. He really appears to be more dehydrated and has been confused. Patient decided to come into the hospital for further evaluation. Have updated family. Patient is oxygenating well. Oxygen saturations are 96%. Patient is on room air. Patient is having some diarrhea. Will monitor in the hospital through the night. His symptoms improved possible discharge if not improving then continue to monitor patient Allergies No Known Allergies Allergy (Unverified 11/09/12 15:16) Home Medications: Aspirin Chewable [Aspirin Chewable*] 81 mg PO DAILY 11/09/12 Metoprolol Tartrate [Lopressor*] 50 mg PO DAILY 11/09/12 Rosuvastatin [Crestor*] 10 mg PO BEDTIME 11/09/12 - Past Medical/Surgical History Has patient received pneumonia vaccine in the past: Yes Diabetic: No -: Hypertension -: High Cholesterol -: Back Surgery - Family History Father Family History: Reviewed- Non-Contributory - Social History Smoking Status: Never smoker Alcohol use: No CD- Drugs: No Caffeine use: Yes Place of Residence: Home Review of Systems 10-point ROS is otherwise unremarkable Physical Examination - Vital Signs Temperature: 98.3 F Blood Pressure: 177/82 Pulse: 59 Respirations: 18 Pulse Ox (%): 95 - Physical Exam General: Alert, In no apparent distress, Oriented x3 HEENT: Atraumatic, PERRLA, Mucous membr. moist/pink, EOMI, Sclerae nonicteric Neck: Supple, 2+ carotid pulse no bruit, No LAD, Without JVD or thyroid abnormality Respiratory: Clear to auscultation bilaterally, Normal air movement Cardiovascular: Regular rate/rhythm, Normal S1 S2, No murmurs Gastrointestinal: Normal bowel sounds, Soft and benign, Non-distended, No tend erness Musculoskeletal: No clubbing, No swelling, No tenderness Integumentary: No rashes Neurological: Normal gait, Normal speech, Normal strength at 5/5 x4 extr, Normal tone, Normal affect Lymphatics: No axilla or inguinal lymphadenopathy Assessment & Plan - Problems (Diagnosis) (1) Pneumonia due to COVID-19 virus Current Visit: Yes Status: Acute - Plan 1. Continue with IV steroids 2. Monitor inflammatory markers 3. Repeat chest x-ray is symptoms are progressively worsening 4. O2 per protocol 5. Continue with albuterol inhaler therapy; also supportive care 6. Monitor LFTs 7. GI and DVT prophylaxis Discharge Plan: Home Plan to discharge in: Greater than 2 days - Advance Directives Does patient have a Living Will: No Does patient have a Durable POA for Healthcare: Yes - Code Status/Comfort Care Code Status Assessed: Yes Code Status: Full Code Critical Care: No Time Spent Managing PTS Care (In Minutes): 45
--- NOTE | 2020-10-30 06:10 | P.PN ---
Subjective Date of Service: 10/28/20 Patient still does not feel that well. He is a little short of breath and having diarrhea. Continue with IV hydration. Review of Systems 10-point ROS is otherwise unremarkable Physical Examination - Vital Signs Temperature: 98.3 F Blood Pressure: 177/82 Pulse: 59 Respirations: 18 Pulse Ox (%): 95 - Physical Exam General: Alert, In no apparent distress, Oriented x3 HEENT: Atraumatic, PERRLA, EOMI Neck: Supple, JVD not distended Respiratory: Clear to auscultation bilaterally, Normal air movement Cardiovascular: Regular rate/rhythm, Normal S1 S2 Gastrointestinal: Normal bowel sounds, No tenderness Musculoskeletal: No tenderness Integumentary: No rashes Neurological: Normal speech, Normal tone, Normal affect Lymphatics: No axilla or inguinal lymphadenopathy - Studies Medications List Reviewed: Yes Assessment & Plan - Problems (Diagnosis) (1) Pneumonia due to COVID-19 virus Current Visit: Yes Status: Acute - Plan Continue with plan of care as mentioned below 1. Continue with IV steroids 2. Monitor inflammatory markers 3. Repeat chest x-ray is symptoms are progressively worsening 4. O2 per protocol 5. Continue with albuterol inhaler therapy; also supportive care 6. Monitor LFTs 7. GI and DVT prophylaxis Discharge Plan: Home Plan to discharge in: Greater than 2 days - Advance Directives Does patient have a Living Will: No Does patient have a Durable POA for Healthcare: Yes - Code Status/Comfort Care Code Status: Full Code Critical Care: No Time Spent Managing PTS Care (In Minutes): 45
--- NOTE | 2020-10-30 06:12 | P.PN ---
Date of Service: 10/29/20 Subjective Patient doing better since he went to his own room. Diarrhea has improved as well. No new complaints. Review of Systems 10-point ROS is otherwise unremarkable Physical Examination - Vital Signs Reviewed - Physical Exam General: Alert, In no apparent distress, Oriented x3 Respiratory: Clear to auscultation bilaterally, Normal air movement Cardiovascular: Regular rate/rhythm, Normal S1 S2 Gastrointestinal: Normal bowel sounds, No tenderness Neurological: Normal speech, Normal tone, Normal affect Assessment & Plan - Problems (Diagnosis) (1) Pneumonia due to COVID-19 virus Current Visit: Yes Status: Acute - Plan Continue with plan of care as mentioned below 1. Continue with IV steroids 2. Monitor inflammatory markers; ferritin is normal and CRP is very minimal 3. Chest x-ray does appear to improve. However radiology felt possibly a little worse. Repeat chest x-ray in the morning 4. O2 per protocol 5. Continue with albuterol inhaler therapy; also supportive care 6. Monitor LFTs 7. GI and DVT prophylaxis
--- NOTE | 2020-10-30 07:19 | EKG ---
Test Date: 2020-10-27 Test Time: 11:30:38 Tube Mill Operator: PANCHO MEASUREMENT RESULTS: Intervals: Rate: 82 DE: 140 QRSD: 92 QT: 378 QTc: 441 [place]: P: 28 DE: 140 QRS: 47 T: 52 INTERPRETIVE STATEMENTS: Normal sinus rhythm Normal ECG Compared to ECG 10/23/2020 10:18:36 No significant changes Electronically Signed On 10-30-20 07:14:56 CDT by Fabio Taveras
--- NOTE | 2020-10-30 07:39 | P.DS ---
Admission Date: 10/28/20 Discharge Date: 10/30/20 Primary Care Provider: Miguel Cason NP Disposition: ROUTINE DISCHARGE Discharge Condition: GOOD Reason for Admission: COVID-19 pneumonia Consultations: None Procedures: COVID: Positive on the 10/23/20 CT scan: FINDINGS: No evidence of pulmonary thromboembolism. No acute aortic finding demonstrated. Moderate areas airspace consolidation and interstitial air opacity seen posterior segments of both upper lobes as well as posterior segment of both lower lobes. Small hiatal hernia. No significant pericardial or pleural fluid. No concerning bony finding. IMPRESSION: No evidence of pulmonary thromboembolism. Moderate alveolar and interstitial lung opacities bilaterally as detailed likely related to infection/pneumonia. Medical Problem List: Dyspnea secondary to COVID 19 Pneumonia Diarrhea with mild dehydration HTN Hyperlipidemia Brief History of Present Illness: Patient is a 60-year-old gentleman who came to the hospital with COVID-19 pneumonia. Patient was here about a week ago. Patient's clinical symptoms have not really improved. The family states he has has been getting worse. He really appears to be more dehydrated and has been confused. Patient decided to come into the hospital for further evaluation. Have updated family. Patient is oxygenating well. Oxygen saturations are 96%. Patient is on room air. Patient is having some diarrhea. Patient admitted for further evaluation and treatment. Hospital Course: Patient presented with fatigue, dyspnea and diarrhea. Patient was recently tested positive for COVID-19 pneumonia. Patient also had dehydration. The patient was seen in the ER and discharged home. Patient presented with worsening symptoms. Patient was admitted for treatment. Patient has improved. Patient did qualify for home oxygen. Home oxygen will be arranged. Diarrhea improved. Overall condition improved as well. Patient was started on antibiotic therapy with improvement. At discharge patient with continue with home oxygen. At discharge patient will continue with Augmentin 875 mg 1 pill twice daily for 7 days. The patient will continue with Eliquis 5 mg 1 pill twice daily for 14 days for DVT prophylaxis due to his Covid infection. After completion of Eliquis patient can restart aspirin 81 mg daily. At discharge the patient will also continue with supplementation including vitamin C 500 mg 3 times a day, vitamin D 2000 units daily, thiamine 100 mg 1 pill twice daily, and zinc 220 mg daily. Patient will continue with CDC guidelines on COVID-19 isolation and recommendation. Patient will continue with proning, social distancing and facemask use. Continue with incentive spirometer. Encourage increase intake. Patient will be provided Ensure 1 can twice daily as needed for supplementation. Recommend follow-up with pulmonology in 1 week to follow- up hospitalization. Patient will need to see a PCP to [facility]. Information will be provided to arrange follow up. Patient had reported some diarrhea. This has resolved. Patient given oral nutrition without difficulty. As mentioned above patient will continue with Ensure 1 can twice daily for additional supplementation. Continue to encourage oral intake. At discharge we will also recommend lactobacillus 1 pill 3 times a day for at least 14 days. Patient with hypertension. Medications have been adjusted due to his low heart rate. Patient previously on metoprolol. Patient was switched to Norvasc for better blood pressure control. At discharge metoprolol has been discontinued. At discharge patient will continue with Norvasc 10 mg daily. Recommend to maintain blood pressure less than 130/80. Further adjustment can be done by PCP. Patient with hyperlipidemia. At discharge patient will continue with Crestor 10 mg daily. Vital Signs/Physical Exam: Temp Pulse Resp BP Pulse Ox 98.3 F 59 18 177/82 H 95 10/30/20 06:10 10/30/20 06:10 10/30/20 06:10 10/30/20 06:10 10/30/20 06:10 General: Alert, In no apparent distress, Oriented x3, Cooperative HEENT: Atraumatic Neck: Supple Respiratory: Clear to auscultation bilaterally, Normal air movement Cardiovascular: Normal pulses, Regular rate/rhythm Gastrointestinal: Normal bowel sounds, No tenderness, No masses, No rebound, No guarding Musculoskeletal: No erythema, No tenderness, No warmth Integumentary: No tenderness/swelling Neurological: Normal speech, Normal strength at 5/5 x4 extr, Normal tone, Normal affect Laboratory Data at Discharge: WBC 8.40 K/uL (4.3-10.9) 10/30/20 03:14 Hgb 9.4 g/dL (13.6-17.9) L 10/30/20 03:14 Hct 28.9 % (39.6-49.0) L 10/30/20 03:14 Plt Count 308 K/uL (152-406) 10/30/20 03:14 PT 14.5 SECONDS (9.5-12.5) H 10/27/20 11:20 INR 1.26 10/27/20 11:20 Sodium 133 mmol/L (136-145) L 10/30/20 03:14 Potassium 4.8 mmol/L (3.5-5.1) 10/30/20 03:14 BUN 18 mg/dL (7-18) 10/30/20 03:14 Creatinine 0.73 mg/dL (0.55-1.3) 10/30/20 03:14 Glucose 149 mg/dL (74-106) H 10/30/20 03:14 Phosphorus 4.1 mg/dL (2.5-4.9) 10/30/20 03:14 Magnesium 2.4 mg/dL (1.8-2.4) 10/30/20 03:14 Total Bilirubin 0.3 mg/dL (0.2-1.0) 10/30/20 03:14 AST 18 U/L (15-37) 10/30/20 03:14 ALT 35 U/L (12-78) 10/30/20 03:14 Alkaline Phosphatase 75 U/L (45-117) 10/30/20 03:14 Triglycerides 86 mg/dL (<150) 10/28/20 04:42 Cholesterol 140 mg/dL (<200) 10/28/20 04:42 HDL Cholesterol 48 mg/dL (40-60) 10/28/20 04:42 Cholesterol/HDL Ratio 2.92 10/28/20 04:42 Home Medications: Aspirin Chewable [Aspirin Chewable*] 81 mg PO DAILY 11/09/12 Rosuvastatin [Crestor*] 10 mg PO BEDTIME 11/09/12 Amlodipine [Norvasc*] 10 mg PO DAILY #30 tab 10/30/20 Amox/Clavulanate [Augmentin 875-125 Tab*] 875 mg PO BID #14 tab 10/30/20 Apixaban [Eliquis] 5 mg PO BID #30 tablet 10/30/20 Ascorbic Acid [Vitamin C*] 500 mg PO TID #90 tablet 10/30/20 Cholecalciferol (Vitamin D3) [Vitamin D 1000 Iu Tab*] 2,000 unit PO DAILY #60 tab 10/30/20 Ensure High Protein 237 ml PO BID #60 can 10/30/20 Lactobacillus Acidophilus [Acidophilus Probiotic] 1 each PO TID #42 capsule 10/30/20 Thiamine HCl [Vitamin B-1*] 100 mg PO BID #60 tablet 10/30/20 Zinc Sulfate [Zinc Sulfate*] 220 mg PO DAILY #30 cap 10/30/20 predniSONE [Prednisone*] 20 mg PO SEECOM #21 tab 10/30/20 New Medications: Lactobacillus Acidophilus [Acidophilus Probiotic] 1 each PO TID #42 capsule Amox/Clavulanate [Augmentin 875-125 Tab*] 875 mg PO BID #14 tab Apixaban [Eliquis] 5 mg PO BID #30 tablet Ensure High Protein 237 ml PO BID #60 can Amlodipine [Norvasc*] 10 mg PO DAILY #30 tab predniSONE [Prednisone*] 20 mg PO SEECOM #21 tab Thiamine HCl [Vitamin B-1*] 100 mg PO BID #60 tablet Ascorbic Acid [Vitamin C*] 500 mg PO TID #90 tablet Cholecalciferol (Vitamin D3) [Vitamin D 1000 Iu Tab*] 2,000 unit PO DAILY #60 tab Zinc Sulfate [Zinc Sulfate*] 220 mg PO DAILY #30 cap Physician Discharge Instructions: Patient presented with fatigue, dyspnea and diarrhea. Patient was recently tested positive for COVID-19 pneumonia. Patient also had dehydration. The patient was seen in the ER and discharged home. Patient presented with worsening symptoms. Patient was admitted for treatment. Patient has improved. Patient did qualify for home oxygen. Home oxygen will be arranged. Diarrhea improved. Overall condition improved as well. Patient was started on antibiotic therapy with improvement. At discharge patient with continue with home oxygen. At discharge patient will continue with Augmentin 875 mg 1 pill twice daily for 7 days. The patient will continue with Eliquis 5 mg 1 pill twice daily for 14 days for DVT prophylaxis due to his Covid infection. After completion of Eliquis patient can restart aspirin 81 mg daily. At discharge the patient will also continue with supplementation including vitamin C 500 mg 3 times a day, vitamin D 2000 units daily, thiamine 100 mg 1 pill twice daily, and zinc 220 mg daily. Patient will continue with CDC guidelines on COVID-19 isolation and recommendation. Patient will continue with proning, social distancing and facemask use. Continue with incentive spirometer. Encourage increase intake. Patient will be provided Ensure 1 can twice daily as needed for supplementation. Recommend follow-up with pulmonology in 1 week to follow- up hospitalization. Patient will need to see a PCP to [facility]. Information will be provided to arrange follow up. Patient had reported some diarrhea. This has resolved. Patient given oral nutrition without difficulty. As mentioned above patient will continue with Ensure 1 can twice daily for additional supplementation. Continue to encourage oral intake. At discharge we will also recommend lactobacillus 1 pill 3 times a day for at least 14 days. Patient with hypertension. Medications have been adjusted due to his low heart rate. Patient previously on metoprolol. Patient was switched to Norvasc for be tter blood pressure control. At discharge metoprolol has been discontinued. At discharge patient will continue with Norvasc 10 mg daily. Recommend to maintain blood pressure less than 130/80. Further adjustment can be done by PCP. Patient with hyperlipidemia. At discharge patient will continue with Crestor 10 mg daily. Diet: AHA Activity: Ad ko Followup: Eliza Csaon NP [Primary Care Provider] - Time spent managing pt's care (in minutes): 55
--- NOTE | 2020-10-30 08:36 | RAD REPORT ---
EXAM DESCRIPTION: Nii Single View10/30/2020 8:18 am CLINICAL HISTORY: Pneumonia COMPARISON: October 29 FINDINGS: No significant change the bilateral pulmonary opacities. Heart is mildly enlarged IMPRESSION: No significant change in a mild to moderate bilateral pneumonia
[2020-10-30] MEDS: AMLODIPINE 10 MG TAB PO SCH ×2 (09:00→09:06)
[2020-10-30] MEDS ORDERED: VITAMIN D 1000 UNIT TAB PO SCH (09:00)
[2020-10-30] MEDS ORDERED: FAMOTIDINE 20 MG TAB PO SCH (09:00)
[2020-10-30] MEDS ORDERED: predniSONE 20 MG TAB PO SCH (09:00)
[2020-10-30] MEDS ORDERED: AMOX/K CLAV 875 MG TAB PO SCH (09:00)
[2020-10-30] MEDS ORDERED: THIAMINE HCL 100 MG TABLET PO SCH (09:00)
[2020-10-30] MEDS ORDERED: ZINC SULFATE 220 MG CAP PO SCH (09:00)
[2020-10-30] MEDS: APIXABAN 5 MG TABLET PO SCH (09:06)
[2020-10-30] MEDS: LACTOBACILLUS/ACIDOPHILUS TAB PO SCH ×2 (09:06→13:00)
[2020-10-30] MEDS: ASCORBIC ACID 500 MG TABLET PO SCH ×2 (09:06→13:00)
[2020-10-30] MEDS: ENSURE HIGH PROTEIN 237 ML CAN PO SCH ×2 (09:07→13:00)
[2020-10-30 13:19] VITALS: TEMP 97.6
[2020-10-30 17:00] VITALS: BP 132/64
[2020-10-30 17:33] VITALS: O2SAT 91
== END 2020-10-30 18:21 | disposition home or self-care (01) | DRG 177 ==
LOC: ER 11:08 → ERHOLD 13:34 → 3RD-ICU 14:44 → OBSVTOIN 10-28 14:29 → 4TH 10-29 07:45
PROVIDERS: ADMIT Hospitalist; ATTEND Family Medicine
DX: U07.1 COVID-19 (principal); J12.82 Pneumonia due to coronavirus disease 2019; I10 Essential (primary) hypertension; E78.5 Hyperlipidemia, unspecified; E86.0 Dehydration; Z79.82 Long term (current) use of aspirin; Z79.899 Other long term (current) drug therapy; Z79.02 Long term (current) use of antithrombotics/antiplatelets; Z79.52 Long term (current) use of systemic steroids
CPT/HCPCS: 36415; 71045; 71275; 80048; 80053; 80061; 80076; 82728; 82947; 83605; 83735; 83880; 84100; 84484; 85025; 85379; 85610; 86140; 87040; 93005; 94760; 96361; 96372; 96374; 96375; 99285; G0378; J0456; J0696; J1100; J1650; J2405; J2920; J7030; J7040; J7050; J7512; Q9967

== ENCOUNTER 2020-11-15 09:25 | Day surgery (SDC) | payer BC ==
--- NOTE | 2020-11-14 10:33 | RAD REPORT ---
EXAM DESCRIPTION: RAD - Chest Pa And Lat (2 Views) - 11/14/2020 10:11 am CLINICAL HISTORY: preoppending cholecystectomy COMPARISON: October 30 TECHNIQUE: Frontal and lateral views of the chest were obtained. FINDINGS: The lungs are better inflated than on the comparison study. No new mass or consolidation. No acute failure or volume overload findings. The alveolar opacities seen on the prior study have shirley ared. Heart size is normal and central vasculature is within normal limits. No pleural effusion or pneu mothorax seen. No acute bony finding noted. No aortic abnormality. IMPRESSION: No acute cardiopulmonary process. Airspace opacification seen October 30 has cleared.
[2020-11-15] MEDS ORDERED: Ringers Lactate 1,000 ML IV ONE (09:54)
[2020-11-15] MEDS ORDERED: CEFOXITIN/SWI 1gm 1 GM/10 ML SYR ONE (09:54)
[2020-11-15] MEDS ORDERED: MIDAZOLAM HCL 2 MG/2 ML INJ ONE (11:39)
[2020-11-15] MEDS ORDERED: LIDOCAINE 1% MPF 5 ML VIAL ONE (11:39)
[2020-11-15] MEDS ORDERED: propofoL 200 MG/20 ML VIAL IV ONE (11:39)
[2020-11-15] MEDS ORDERED: FENTANYL CITR 100 MCG/2 ML ONE ×2 (11:39→12:45)
[2020-11-15] MEDS ORDERED: ROCURONIUM 50 MG/5 ML VIAL IV ONE (11:53)
[2020-11-15] MEDS ORDERED: KETOROLAC 30 MG/ML INJ ONE (12:13)
[2020-11-15] MEDS ORDERED: ONDANSETRON 4 MG/2 ML VIAL ONE (12:14)
[2020-11-15] MEDS ORDERED: GLYCOPYRROLATE 0.2 MG/ML SYR ONE (12:17)
--- NOTE | 2020-11-15 12:21 | P.BOP ---
Preoperative diagnosis: acute cholecystitis, symptomatic cholelithiasis Postoperative diagnosis: same Primary procedure: Laparoscopic cholecystectomy Mainframe Developer: CRUZ REYES (MATRIX BATH ATTENDANT) Estimated blood loss: <10cc Specimen: gb Findings: as above Anesthesia: General Complications: None Transferred to: Recovery Room Condition: Good
[2020-11-15] MEDS ORDERED: NEOSTIGMINE 1 MG/ML -5 ML ONE (12:25)
[2020-11-15] MEDS: HYDROMORPHONE HCL 2 MG/ML inj ONE ×2 (12:43→12:58)
[2020-11-15] MEDS ORDERED: MORPHINE 10 MG/ML VIAL ONE (12:48)
[2020-11-15] MEDS ORDERED: HYDRALAZINE HCL 20 MG/ML VIAL ONE (13:11)
--- NOTE | 2020-11-15 13:27 | OP ---
Date of Procedure: 11/15/2020 Surgeon: Prabhu Rebolledo MD Commercial Print Salesman: TIFFANI Brooks. Preoperative Diagnoses: Acute cholecystitis, acute right upper quadrant abdominal pain, symptomatic cholelithiasis, and COVID positive. Postoperative Diagnoses: Acute cholecystitis, acute right upper quadrant abdominal pain, symptomatic cholelithiasis, and COVID positive. Procedure: Laparoscopic cholecystectomy. Anesthesia: General plus local. Specimen: Gallbladder. Estimated Blood Loss: Less than 10 mL. Indication: This is the case of a male, who comes to us with acute abdominal pain. He has several w eeks ago episode of COVID and was treated in an institution and later released. For the last few day s, he been having abdominal pain. He is trying to control his diet, but it is still not better. He still has a positive diagnosis of COVID, but his abdominal pain is getting worse and so he wants to d o the surgery now and not to wait. He understands the benefits, alternatives, and risks of laparosco pic possible open cholecystectomy, which include, but not limited to infection, bleeding, damage to a djacent structures, anesthesia complication, choledocholithiasis, bile leak, exacerbation of lung dis ease, [place], and even . He also understands the chance of pancreatitis. He signed a consent. Procedure In Detail: The patient was brought to the operating room, placed in supine position. Anes thesia was done without complication. Abdominal area was prepped and draped in a sterile fashion. M arcaine 0.5% was injected for local anesthetic followed by sharp incision of skin in the infraumbilic al region. The incision was carried down under direct vision. Peritoneum was encountered, opened un cristo direct vision. Vicryl #1 placed inside the fascia. Mimi trocar was carefully introduced. Pne umoperitoneum was obtained. I placed 3 more trocars, 5 mm trocar under direct visualization in the e pigastric and right upper quadrant area under direct visualization. This allowed me to put a grasper in the fundus of the gallbladder and another grasper in the infundibulum retracting the gallbladder in the inferolateral fashion, exposing the triangle of Calot, and obtaining critical view. Cystic du ct and cystic artery were clearly isolated, free circumferentially and a connection between those and the gallbladder was clearly identified. I proceeded to ligate those by using at least 3 clips proxi mal, 1 clip distal, ligation in the middle. Same was done with the cystic artery. No bile leak, no bleeding. The gallbladder was removed from the liver using Bovie cauterizer and removed from abdomin al cavity using EndoCatch through the umbilical incision. The area was inspected once again. No dolores e leak, no bleeding. At that moment, I proceeded to remove the trocars under direct vision. Deflate d pneumoperitoneum, closed the fascia with #1 Vicryl. Irrigated the subcutaneous tissue, closed with 3-0 chromic and skin in a subcuticular fashion with 3-0 chromic and Steri-Strips on top. Sponge cou nt and instrument counts correct. The patient tolerated the procedure well. The patient was sent to recovery in stable condition. SADIA/JEREMY Voice ID: [id number] Report ID: [id number]
[2020-11-15 13:28] VITALS: TEMP 97; O2SAT 97
[2020-11-15] MEDS ORDERED: HYDROCODONE/APAP 7.5/325 MG TAB ONE (13:31)
[2020-11-15 13:37] VITALS: BP 133/70
--- NOTE | 2020-11-15 14:29 | DS ---
Diagnoses: Acute cholecystitis, symptomatic cholelithiasis, right upper quadrant abdominal pain, his tory of COVID disease, right now asymptomatic from the COVID disease. No shortness of breath. No ch est pain. No fever. The patient wanted surgery done during this admission since he was not improvin g. He underwent the case uneventfully. He is going to be discharged home. pharmacy. Discharge Instructions: Keep area dry for 48 hours, then may shower. Keep Steri-Strips intact and n o heavy lifting. The patient advised to consult his primary doctor once again to follow in his COVID disease. SADIA/JEREMY Voice ID: [id number] Report ID: [id number]
== END 2020-11-15 13:45 | disposition home or self-care (01) ==
LOC: PRE 09:25
PROVIDERS: ATTEND Surgery
PROC: 0FT44ZZ Resection of Gallbladder, Percutaneous Endoscopic Approach (ICD-10-PCS; principal; 2020-11-15 10:45)
DX: K80.10 Calculus of gallbladder with chronic cholecystitis without obstruction (principal); R10.11 Right upper quadrant pain; U07.1 COVID-19
CPT/HCPCS: 36415; 88304; 83690; 71046; 47562; U0003; J0360; J2704; J2250; J1170; J3010 ×2; J2710; J7120; J2405

== ENCOUNTER 2021-01-23 17:41 | Emergency (ER) | payer BC ==
--- OUTSIDE RECORDS SUMMARY | 2021-01-23 17:55 | XMS REPORT | Continuity of Care Document ---
:1960 Author Organization [facility] t Address [address] [place] [address] Care Team Providers Name Role Phone Jerardo [...] 00:00 or milk Memoria 00 :00 l [facility] Aspirin Aspirin Yes Mehrdad [address] [facility] Adult Low Adult Low [facility] - Dose Dose Memoria [facility]ics Atorvastati Atorvastati Yes Mehrdad [address] [facility] n Calcium n Calcium [facility] Metoprolol Metoprolol Yes Mehrdad [address] [facility] Succinate Succinate [facility] - ER ER [facility] Olmesartan Olmesartan Yes Mehrdad [address] [facility] Medoxomil Medoxomil [facility] Procedures This patient has no known procedures. Encounters Start End Encounter Admission Attending Care Care Encounter Source Date/Time Date/Time Type Type Clinicians Facility Department ID 2021-01-01 2021-01-01 Outpatient [facility] [id number] [facility] 2020-12-06 2020-12-06 [facility] [id number] [facility] 2020-11-29 2020-11-29 [facility] [id number] [facility] 2020-11-02 2020-11-02 Out[facility] [id number] [facility] 2020-10-31 2020-10-31 [facility] [id number] [facility] 2020-10-16 2020-10-16 [facility] [id number] [facility] 2020-10-11 2020-10-11 Out[facility] [id number] [facility] 2020-09-27 2020-09-27 Out[facility] [id number] [facility] 2020-07-07 2020-07-07 [facility] [id number] 16:50:00 17:37:00 Vicki Browne [id number] [place] [id number] [place] [id number] 2019-02-15 2019-02-15 [facility] [id number] [facility] 09:00[facility]00 09:00:00 [facility] 2018-09-03 2018-09-03 [facility] [id number] [facility] 11:22[facility]00 11:22:00 [facility] 2018-08-11 2018-08-11 Outpatient Olamide Flores [id number] [facility] 10:00:00 10:00:00 [facility] 2018-02-09 2018-02-09 Outpatient Olamide Flores [id number] [facility] 10:00:00 10:00:00 [facility] Results This patient has no known results.
[2021-01-23 18:34] LABS: Basophils % 0.8 % (0-1.3); Hematocrit 33.8 % (39.6-49.0); Lymphocytes % 13.4 % (15.3-44.8); MPV 8.7 fL (7.6-11.3)
[2021-01-23] MEDS ORDERED: dexAMETHasone 10 MG/ML VIAL ONE (18:42)
[2021-01-23] MEDS ORDERED: METOCLOPRAMIDE 10 MG/2mL INJ ONE (18:42)
[2021-01-23 18:43] LABS: Potassium 4.5 mmol/L (3.5-5.1)
[2021-01-23] MEDS ORDERED: NA CHLORIDE 0.9% 1,000 ML ONE (18:43)
[2021-01-23] MEDS ORDERED: MEPERIDINE HCL 25 MG/ML SYR ONE (18:43)
--- NOTE | 2021-01-23 20:03 | RAD REPORT ---
EXAM DESCRIPTION: CT - Head Brain Wo Cont - 01/23/2021 7:52 pm CLINICAL HISTORY: HEADACHE, right-sided head and neck pain COMPARISON: Head angio dated 01/23/2021 TECHNIQUE: Axial 5 mm thick images of the head were obtained without IV contrast. All CT scans are performed using dose optimization technique as appropriate and may include automated exposure control or mA/KV adjustment according to patient size. FINDINGS: No intracranial hemorrhage, mass, edema or shift of mid-line structures. No acute infarcti on changes seen. No abnormal extra-axial fluid collections. No significant atrophy or chronic ischemi c change. Ventricles are normal. Mastoid air cells and visualized portions of the paranasal sinuses are clear. No acute bony findings. IMPRESSION: Negative non-contrast CT head examination.
--- NOTE | 2021-01-23 20:06 | RAD REPORT ---
EXAM DESCRIPTION: CT - Head angio - 01/23/2021 7:53 pm CLINICAL HISTORY: HEADACHE, right-sided head and neck pain TECHNIQUE: During dynamic enhancement using nonionic IV contrast, axial 1 millimeter thick images of the head were obtained. Sagittal and axial reconstruction images were generated using MIP technique and reviewed. All CT scans are performed using dose optimization technique as appropriate and may include automated exposure control or mA/KV adjustment according to patient size. FINDINGS: No aneurysm or vascular malformation identified. Major venous sinuses are patent. No named branch occlusion, vasculitis or other acute vascular finding identifiable. Prominent calcifi cations in the cavernous internal carotid arteries without significant luminal narrowing. No basilar artery abnormality. IMPRESSION: Distal Internal carotid artery prominent atherosclerotic calcifications without signifi cant stenosis. No occlusion of a named branch and no significant intracranial atherosclerotic changes identifiable.
--- NOTE | 2021-01-23 20:08 | RAD REPORT ---
EXAM DESCRIPTION: CT - Neck Angio - 01/23/2021 7:53 pm CLINICAL HISTORY: neck pain;Headache TECHNIQUE: During dynamic enhancement using nonionic IV contrast, axial 2 mm thick images of the nec k were obtained. Sagittal and axial reconstruction images were generated using MIP technique and revi ewed. All CT scans are performed using dose optimization technique as appropriate and may include automated exposure control or mA/KV adjustment according to patient size. FINDINGS: No aneurysm or vascular malformation identified. No carotid or vertebral dissection. No aortic arch or great vessel origin abnormality seen. Vertebral artery origins unremarkable as well . No stenosis, vasculitis or other significant carotid artery finding. No focal abnormality of either vertebral artery. Left vertebral artery is dominant with the right vertebral artery terminating at t he posteroinferior cerebellar artery. Basilar artery is normal. IMPRESSION: Negative CT angio neck examination for acute or significant finding.
--- NOTE | 2021-01-23 20:44 | ER ---
Nurse's Notes [facility] Name: Omari Whitfield Age: 60 yrs Sex: Male : 1960 Arrival Date: 01/23/2021 Time: 17:43 Bed 20 Private MD: Diagnosis: Headache;Torticollis Presentation: 01/23 17:56 Chief complaint: Patient states: R occipital/neck pain, worse when sitting down, sv started 5 days ago. Was seen at [place] yesterday and given Toradol, Valium, Zofran, Stadol and sent home with prescriptions but the pain has become more severe starting today at 0400. Pt had a CT C-spine done as well. Coronavirus screen: Client denies travel out of the [place] in the last 14 days. At this time, the client does not indicate any symptoms associated with coronavirus-19. Ebola Screen: No symptoms or risks identified at this time. Risk Assessment: Do you want to hurt yourself or someone else? Patient reports no desire to harm self or others. Onset of symptoms was January 18, 2021. 17:56 Method Of Arrival: Ambulatory sv 17:56 Acuity: GETACHEW 3 sv 18:42 Initial Sepsis Screen: Does the patient meet any 2 criteria? No. Patient's initial jl7 sepsis screen is negative. Does the patient have a suspected source of infection? No. Patient's initial sepsis screen is negative. Historical: - Allergies: 17:59 No Known Allergies; sv - PMHx: 17:59 High Cholesterol; Hypertension; COVID; Neuropathy; sv - Immunization history:: Client reports having NOT received the Covid vaccine. - Social history:: Smoking status: Patient denies any tobacco usage or history of. Screenin:41 Abuse screen: Denies threats or abuse. Denies injuries from another. Nutritional jl7 screening: No deficits noted. Tuberculosis screening: No symptoms or risk factors identified. Fall Risk IV access (20 points). Total Santacruz Fall Scale indicates No Risk (0-24 pts). Assessment: 18:20 General: Appears in no apparent distress. uncomfortable, Behavior is calm, cooperative, jl7 appropriate for age. Pain: Complains of pain in occipital area Pain radiates to base of the skull Pain currently is 10 out of 10 on a pain scale. Quality of pain is described as sharp, stabbing, Pain began x 5 days Is continuous. Neuro: Level of Consciousness is awake, alert, obeys commands, Oriented to person, place, time, situation. Cardiovascular: Patient's skin is warm and dry. Respiratory: Airway is patent Respiratory effort is even, unlabored, Respiratory pattern is regular, symmetrical. Derm: Skin is pink, warm \T\ dry. 19:00 Reassessment: Patient appears in no apparent distress at this time. Patient and/or jb4 family updated on plan of care and expected duration. Pain level reassessed. Patient is alert, oriented x 3, equal unlabored respirations, skin warm/dry/pink. 20:00 Reassessment: Patient appears in no apparent distress at this time. Patient and/or jb4 family updated on plan of care and expected duration. Pain level reassessed. Patient is alert, oriented x 3, equal unlabored respirations, skin warm/dry/pink. 21:00 Reassessment: Patient appears in no apparent distress at this time. Patient and/or jb4 family updated on plan of care and expected duration. Pain level reassessed. Patient is alert, oriented x 3, equal unlabored respirations, skin warm/dry/pink. Vital Signs: 17:56 BP 174 / 94; Pulse 86; Resp 18; Weight 92.99 kg; Height 6 ft. 1 in. (185.42 cm); Pain sv 10/10; 18:41 BP 161 / 84; Pulse 74; Resp 15; Pulse Ox 98% ; jl7 19:15 BP 150 / 83; Pulse 58; Resp 16; Pulse Ox 99% on R/A; jb4 21:00 BP 142 / 86; Pulse 68; Resp 16; Pulse Ox 100% on R/A; jb4 17:56 Body Mass Index 27.05 (92.99 kg, 185.42 cm) sv ED Course: 17:43 Patient arrived in ED. rg4 17:55 Amilcar Islas, SHERRON is Primary Nurse. jl7 17:56 Kam Ace PA is PHCP. cp 17:56 Kam Gustafson MD is Attending Physician. cp 17:59 Triage completed. sv 17:59 Arm band placed on. sv 18:20 Initial lab(s) drawn, by me, sent to lab. Inserted saline lock: 20 gauge in right jl7 antecubital area, using aseptic technique. Blood collected. 18:20 Patient maintains SpO2 saturation greater than 95% on room air. jl7 18:41 Patient has correct armband on for positive identification. Bed in low position. Call jl7 light in reach. Pulse ox on. NIBP on. 19:15 Primary Nurse role handed off by Amilcar Islas RN mw2 19:44 Cabrera Luis, RN is Primary Nurse. jb4 19:52 CT Head Brain wo Cont In Process Unspecified. EDMS 19:52 CT Head Angio In Process Unspecified. EDMS 19:52 CT Neck Angio In Process Unspecified. EDMS 21:00 No provider procedures requiring assistance completed. IV discontinued, intact, jb4 bleeding controlled, No redness/swelling at site. Pressure dressing applied. Administered Medications: 18:29 Drug: Decadron - Dexamethasone 10 mg Route: IVP; Site: right antecubital; jl7 18:50 Follow up: Response: No adverse reaction; Pain is decreased jl7 18:29 Drug: NS 0.9% 1000 ml Route: IV; Rate: 1 bolus; Site: right antecubital; jl7 18:32 Drug: Reglan (metoCLOPramide) 10 mg Route: IVP; Site: right antecubital; jl7 18:50 Follow up: Response: No adverse reaction; Pain is decreased jl7 18:35 Drug: Demerol (meperidine) 25 mg Route: IVP; Site: right antecubital; jl7 18:50 Follow up: Response: No adverse reaction; Pain is decreased jl7 21:11 Drug: Flexeril (cyclobenzaprine) 10 mg Route: PO; jb4 21:12 Drug: Ketorolac 15 mg Route: IVP; Site: right antecubital; jb4 Outcome: 20:43 Discharge ordered by . roxanne 21:00 Discharged to home ambulatory. jb4 21:00 Condition: stable 21:00 Discharge instructions given to patient, family, Instructed on discharge instructions, follow up and referral plans. medication usage, Demonstrated understanding of instructions, follow-up care, medications, Prescriptions given X 2. 21:13 Patient left the ED. jb4 Signatures: Dispatcher [employer] Julieta Claros RN RN sv Page, Corey, PA PA cp Garcia, Rubi 4 Cabrera Luis, RN RN jb4 Amilcar Islas RN RN jl7 Tre Pérez mw2 Corrections: (The following items were deleted from the chart) 18:00 17:56 Chief complaint: Patient states: R occipital/neck pain started 5 days ago. Was sv seen at [place] yesterday and given Toradol, Valium, Zofran, Stadol and sent home with prescriptions but the pain has become more severe starting today at 0400. Pt had a CT C-spine done as well. sv
--- NOTE | 2021-01-23 20:44 | EDPHYS ---
Physician Documentation [facility] Name: Omari Whitfield Age: 60 yrs Sex: Male : 1960 Arrival Date: 01/23/2021 Time: 17:43 Bed 20 Private MD: ED Physician Kam Gustafson HPI: 01/23 18:15 This 60 yrs old Male presents to ER via Ambulatory with complaints of Chest cp Pain, Headache. 18:15 The patient complains of pain to the base of the skull and occipital area and top of cp head. 18:15 The patient describes the headache as aching, constant. Onset: The symptoms/episode cp began/occurred 5 day(s) ago. 18:15 Associated signs and symptoms: Pertinent positives: neck stiffness, Pertinent cp negatives: altered mental status, fever, malaise, paresthesias, sinus congestion, sinus tenderness, vision changes, weakness. Patient denies injury and reports increasing pain from neck to back of head and now top of head that started upon awakening 5 days ago. Patient reports being seen at [place] yesterday and having CT of c-spine that was negative for acute findings. Historical: - Allergies: 17:59 No Known Allergies; sv - PMHx: 17:59 High Cholesterol; Hypertension; COVID; Neuropathy; sv - Immunization history:: Client reports having NOT received the Covid vaccine. - Social history:: Smoking status: Patient denies any tobacco usage or history of. ROS: 18:20 Neck: Positive for pain with movement, pain at rest, stiffness, tenderness, of the base cp of the skull and occipital area and posterior neck and upper back. 18:20 Constitutional: Negative for body aches, chills, fever, poor PO intake. cp 18:20 Cardiovascular: Negative for chest pain, edema, palpitations. 18:20 Respiratory: Negative for cough, shortness of breath, wheezing. 18:20 Abdomen/GI: Negative for abdominal pain, nausea, vomiting, and diarrhea. 18:20 Skin: Negative for rash. 18:20 Eyes: Negative for injury, pain, redness, and discharge. cp 18:20 ENT: Negative for ear pain, sore throat, difficulty swallowing, difficulty handling cp secretions. 18:20 Neuro: Positive for headache, Negative for altered mental status, numbness, weakness. 18:20 All other systems are negative. Exam: 18:25 Constitutional: The patient appears in no acute distress, alert, awake, cp non-diaphoretic, non-toxic, well developed, well nourished, uncomfortable. 18:25 Head/Face: Normocephalic, atraumatic. cp 18:25 Eyes: Periorbital structures: appear normal, Conjunctiva: normal, no exudate, no injection, Sclera: no appreciated abnormality, Lids and lashes: appear normal, bilaterally. 18:25 ENT: External ear(s): are unremarkable, Nose: is normal, Mouth: Lips: moist, Oral mucosa: moist, Posterior pharynx: Airway: no evidence of obstruction, patent. 18:25 Neck: ROM/movement: pain, that is moderate, with any movement, limited range of motion, that is moderate, when rotating to the right, when rotating to the left, Meningeal signs: are not present. 18:25 Chest/axilla: Inspection: normal, Palpation: is normal, no crepitus, no tenderness. 18:25 Cardiovascular: Rate: normal, Rhythm: regular. 18:25 Respiratory: the patient does not display signs of respiratory distress, Respirations: normal, no use of accessory muscles, no retractions, labored breathing, is not present, Breath sounds: are clear throughout, no decreased breath sounds, no stridor, no wheezing. 18:25 Abdomen/GI: Inspection: abdomen appears normal, Palpation: abdomen is soft and non-tender, in all quadrants. 18:25 Back: pain, that is moderate, of the posterior cervical area, left trapezius, right trapezius, left scapular area and right scapular area, vertebral tenderness, is not appreciated. 18:25 Skin: no rash present. 18:25 Neuro: Orientation: to person, place \T\ time. Mentation: is normal, Motor: moves all fours, strength is normal, Sensation: is normal, Gait: is steady, Deep tendon reflexes are 2+ (normal) in the right tricep, right bicep, right brachioradialis, left bicep, left tricep and left brachioradialis. Vital Signs: 17:56 BP 174 / 94; Pulse 86; Resp 18; Weight 92.99 kg; Height 6 ft. 1 in. (185.42 cm); Pain sv 10/10; 18:41 BP 161 / 84; Pulse 74; Resp 15; Pulse Ox 98% ; jl7 19:15 BP 150 / 83; Pulse 58; Resp 16; Pulse Ox 99% on R/A; jb4 21:00 BP 142 / 86; Pulse 68; Resp 16; Pulse Ox 100% on R/A; jb4 17:56 Body Mass Index 27.05 (92.99 kg, 185.42 cm) sv MDM: 17:59 Patient medically screened. mariia 18:35 Differential diagnosis: intracerebral hemorrhage, meningitis, meningoencephalitis, cp migraine, tension headache, cervical strain. 20:42 Data reviewed: vital signs, nurses notes, lab test result(s), radiologic studies, CT cp scan. 20:42 Counseling: I had a detailed discussion with the patient and/or guardian regarding: the cp historical points, exam findings, and any diagnostic results supporting the discharge/admit diagnosis, lab results, radiology results, to return to the emergency department if symptoms worsen or persist or if there are any questions or concerns that arise at home. Response to treatment: the patient's symptoms have markedly improved after treatment, and as a result, I will discharge patient. 01/23 18:09 Order name: CBC with Diff; Complete Time: 18:54 cp 01/23 18:55 Interpretation: Normal except: HGB 10.9; HCT 33.8; MCV 73.4; MCH 23.7; RDW 15.6; REI% cp 74.9; LYM% 13.4. 01/23 18:09 Order name: BMP; Complete Time: 18:54 cp 01/23 18:55 Interpretation: Normal except: GFR 89. cp 01/23 18:09 Order name: CT Head Brain wo Cont; Complete Time: 20:24 cp 01/23 18:09 Order name: CT Head Angio; Complete Time: 20:24 cp 01/23 18:09 Order name: CT Neck Angio; Complete Time: 20:24 cp 01/23 20:25 Interpretation: Report reviewed. 01/23 18:09 Order name: IV; Complete Time: 18:37 cp Administered Medications: 18:29 Drug: Decadron - Dexamethasone 10 mg Route: IVP; Site: right antecubital; jl7 18:50 Follow up: Response: No adverse reaction; Pain is decreased jl7 18:29 Drug: NS 0.9% 1000 ml Route: IV; Rate: 1 bolus; Site: right antecubital; jl7 18:32 Drug: Reglan (metoCLOPramide) 10 mg Route: IVP; Site: right antecubital; jl7 18:50 Follow up: Response: No adverse reaction; Pain is decreased jl7 18:35 Drug: Demerol (meperidine) 25 mg Route: IVP; Site: right antecubital; jl7 18:50 Follow up: Response: No adverse reaction; Pain is decreased jl7 21:11 Drug: Flexeril (cyclobenzaprine) 10 mg Route: PO; jb4 21:12 Drug: Ketorolac 15 mg Route: IVP; Site: right antecubital; jb4 Disposition: 01/24 09:35 Co-signature as Attending Physician, Kam Gustafson MD I agree with the assessment and mariia plan of care. Disposition Summary: 01/23/21 20:43 Discharge Ordered Location: Home cp Problem: an ongoing problem cp Symptoms: have improved cp Condition: Stable cp Diagnosis - Headache cp - Torticollis cp Followup: cp - With: Private Physician - When: 2 - 3 days - Reason: Recheck today's complaints Discharge Instructions: - Discharge Summary Sheet cp - General Headache Without Cause cp - Acute Torticollis, Adult cp Forms: - Medication Reconciliation Form cp - Thank You Letter cp - Antibiotic Education cp - Prescription Opioid Use cp Prescriptions: - Baclofen 10 mg Oral Tablet - take 1 tablet by ORAL route 3 times per day; 20 tablet; Refills: 0, Product cp Selection Permitted - Tramadol 50 mg Oral Tablet - take 1 tablet by ORAL route every 6-8 hours as needed; 20 tablet; Refills: 0, cp Product Selection Permitted Signatures: Dispatcher [employer] Julieta Claros RN RN sv Anderson, Corey, MD MD cha Page, Corey, PA PA cp Bryson, James RN RN jb4 Amilcar Islas RN RN jl7
[2021-01-23] MEDS ORDERED: KETOROLAC 30 MG/ML INJ ONE (21:26)
[2021-01-23] MEDS ORDERED: CYCLOBENZAPRINE 10 MG TAB ONE (21:26)
[2021-01-23 21:41] VITALS: BP 142/86; O2SAT 100
== END 2021-01-23 21:13 | disposition home or self-care (01) ==
LOC: ER 17:41
DX: M43.6 Torticollis (principal); I10 Essential (primary) hypertension
CPT/HCPCS: 85025; 80048; 36415; 70450; 70496; 70498; Q9967; J2765; J1100; J2175; J7030

== ENCOUNTER 2021-12-22 23:39 | Emergency (ER) | payer BC ==
--- OUTSIDE RECORDS SUMMARY | 2021-12-22 23:42 | XMS REPORT | Continuity of Care Document ---
:1960 Author Organization [facility] t Address [address] [place] [address] Care Team Providers Name Role Phone Betzy Wheatley Attending Clinician Unavailable Kamla Attending Clinician Unavailable Jerardo Hahn DO Attending Clinician Jerardo HAHN Attending Clinician Unavailable Payers Payer Name Policy Type Policy Number Effective Date Expiration Date S ource Problems Condition Condition Condition Status Onset Resolution Last Treating Co mments Source Name Details Category Date Date Treatment Clinician Date No known No known Disease Unive rs active active ity of problems problems [facility] Allergies, Adverse Reactions, Alerts Allergy Allergy Status Severity Reaction(s) Onset Inactive Treating Comm ents Source Name Type Date Date Clinician NO KNOWN Drug Active Univers ALLERGIE Class ity of S [facility] Social History Social Habit Start Date Stop Date Quantity Comments Source Sex Assigned At Uni versity [facility] Exposure to SARS-CoV-2 Not sure [facility] [place] (event) [facility] Smoking Status Start Date Stop Date Source Unknown if ever smoked [facility] y [facility] Medications Ordered Filled Start Stop Current Ordering Indication Dosage Frequency Signature Comments Components Source Medication Medication Date Date Medication? Clinician (SIG) Name Name Diclofenac Diclofenac 2019- No Mehrdad 1 tablet Common Sodium Sodium 02-15 10-27 Aide with food Spir it 00:00: 00:00 or milk - [facility] 00 :00 [facility] traMADOL 2017-07 Yes 50mg Take 1 Univers (ULTRAM) 50 2-06 tablet by ity of mg tablet 00:00: mouth [place] 00 every 6 Medical (six) Branch hours as needed for Pain (scale 4-6). OLMESARTAN 2015-07 Yes Take by Uni vers MEDOXOMIL 1-24 mouth. ity of (BENICAR 10:22: [place] ORAL) 13 Medical Branch ATORVASTATI 2015-07 Yes Take by Un sabra N CALCIUM 1-24 mouth. ity of (ATORVASTAT 10:22: [place] IN ORAL) 13 Medical Branch METOPROLOL 2015-07 Yes Take by Uni vers TARTRATE 1-24 mouth. ity of ORAL 10:22: [place] 12 Medical Branch sulindac 2015-07 Yes 200mg Take 1 Univer s (CLINORIL) 1-24 tablet by ity of 200 mg 00:00: mouth 2 [place] tablet 00 (two) Medical times Branch daily. Aspirin Aspirin Yes Mehrdad 1 tablet Com mon Adult Low Adult Low Aide Spir it Dose Dose - [facility] Atorvastati Atorvastati Yes Mehrdad 1 tablet Common n Calcium n Calcium Aide Spir it - [facility] Metoprolol Metoprolol Yes Mehrdad 1 tablet Common Succinate Succinate Aide Spir it ER ER [facility] Olmesartan Olmesartan Yes Mehrdad 1 tablet Common Medoxomil Medoxomil Aide Spir it [facility] Immunizations Ordered Filled Immunization Date Status Comments [facility] e Immunization Name Name Td 2018-06-25 Completed University 00:00:00 [facility] Vital Signs Vital Name Observation Time Observation Value Comments Source Systolic blood 2020-07-07 22:47:00 141 mm[Hg] Univer sity of pressure [facility] Diastolic blood 2020-07-07 22:47:00 81 mm[Hg] Unive rsity [facility] Heart rate 2020-07-07 22:47:00 73 /min [facility] Body temperature 2020-07-07 22:47:00 37.17 Liana [facility] Respiratory rate 2020-07-07 22:47:00 16 /min [facility] Body height 2020-07-07 22:47:00 185.4 cm [facility] Body weight 2020-07-07 22:47:00 95.255 kg [facility] [place] [facility] BMI 2020-07-07 22:47:00 27.71 kg/m2 [facility] [place] [facility] Oxygen saturation in 2020-07-07 22:47:00 97 /min University of Arterial blood by [facility] Pulse oximetry Branch Systolic blood 2020-07-07 22:47:00 141 mm[Hg] Univer sity of pressure [place] [facility] Diastolic blood 2020-07-07 22:47:00 81 mm[Hg] Unive rsity of pressure [facility] Branch Heart rate 2020-07-07 22:47:00 73 /min [facility] [place] [facility] Body temperature 2020-07-07 22:47:00 37.17 Liana [facility] Res[facility] rate 2020-07-07 22:47:00 16 /min [facility] Body height 2020-07-07 22:47:00 185.4 cm [facility] Body weight 2020-07-07 22:47:00 95.255 kg [facility] [place] [facility] BMI 2020-07-07 22:47:00 27.71 kg/m2 [facility] [place] [facility] Oxygen saturation in 2020-07-07 22:47:00 97 /min [facility] Arterial blood by [facility] Pulse oximetry Branch Procedures Procedure Date / Time Performed Performing Clinician [facility] e CONSENT/REFUSAL FOR 2020-07-07 22:26:29 Doctor Unassigned, No [facility] DIAGNOSIS AND Name Medical Branch TREATMENT NOTICE OF PRIVACY 2020-07-07 22:26:14 Doctor Unassigned, No [facility] PRACTICES Name Medical Branch Encounters Start End Encounter Admission Attending Care Care Encounter Source Date/Time Date/Time Type Type Clinicians Facility Department ID 2021-08-15 Outpatient [place], STLMLC STLMLC [id number] Common 12:52:32 [facility] [id number] [facility] 2021-08-15 Outpatient [place], STLMLC STLMLC [id number] Common 12:51:58 Eliza [id number] [facility] 2021-11-13 2021-11-13 ambulatory STLMLC STLMLC [id number] Common 00:00:00 00:00:00 [facility] 2021-01-23 2021-01-23 Outpatient STLMLC STLMLC [id number] Common 00:00:00 00:00:00 [facility] 2021-01-01 2021-01-01 Outpatient STLMLC STLMLC [id number] Common 00:00:00 00:00:00 [facility] 2020-12-06 2020-12-06 Outpatient STLMLC STLMLC [id number] Common 00:00:00 00:00:00 [facility] 2020-11-29 2020-11-29 Outpatient STLMLC STLMLC [id number] Common 00:00:00 00:00:00 [facility] 2020-11-02 2020-11-02 Outpatient STLMLC STLMLC [id number] Common 00:00:00 00:00:00 [facility] 2020-10-31 2020-10-31 Outpatient STLMLC STLMLC [id number] Common 00:00:00 00:00:00 [facility] 2020-10-16 2020-10-16 Outpatient STLMLC STLMLC [id number] Common 00:00:00 00:00:00 [facility] 2020-10-11 2020-10-11 Outpatient STLMLC STLMLC [id number] Common 00:00:00 00:00:00 [facility] 2020-09-27 2020-09-27 Outpatient STLMLC STLMLC [id number] Common 00:00:00 00:00:00 [facility] 2020-07-07 2020-07-07 Emergency [facility] [id number] Univers 16:50:00 17:37:00 Vicki Browne [id number] Elana [id number] [facility] [id number] [facility] 084 Branch 2020-07-07 2020-07-07 Emergency [facility] [id number] 16:50:00 17:37:00 Vicki Browne [id number] [place] [id number] [place] [id number] 2020-07-07 2020-07-07 Emergency X [facility] ERT [id number] Univers 16:50:00 16:50:00 VICKI kwon [facility] 2019-02-15 2019-02-15 Outpatient Olamide Quiñonezt [id number] Common 09:00:00 09:00:00 t [facility] [address] [facility] 2018-09-03 2018-09-03 Outpatient Olamide Quiñonezt [id number] Common 11:22:00 11:22:[address] [facility] 2018-08-11 2018-08-11 Outpatient Olamide Quiñonezt [id number] Common 10:00:00 10:00:[address] [facility] 2018-02-09 2018-02-09 Outpatient Olamide Quiñonezt [id number] Common 10:00:00 10:00:[address] [facility] Results This patient has no known results.
[2021-12-23] MEDS ORDERED: NA CHLORIDE 0.9% 1,000 ML ONE (00:08)
[2021-12-23] MEDS ORDERED: DIPHENHYDRAMINE 50 MG/ML VIAL ONE (00:08)
[2021-12-23] MEDS ORDERED: METOCLOPRAMIDE 10 MG/2mL INJ ONE (00:09)
[2021-12-23 00:27] LABS: Absolute Lymphocytes (CBC) 0.9 K/uL (0.7-4.9); Hematocrit 42.7 % (39.6-49.0); Lymphocytes % 10.2 % (15.3-44.8); MPV 8.6 fL (7.6-11.3); RBC Red Blood Cell Count 5.58 M/uL (4.33-5.43)
[2021-12-23 00:38] LABS: Potassium 4.1 mmol/L (3.5-5.1)
--- NOTE | 2021-12-23 02:47 | EDPHYS ---
Physician Documentation [facility] Name: Omari Whitfield Age: 61 yrs Sex: Male : 1960 Arrival Date: 12/22/2021 Time: 23:42 Bed 6 Private MD: ED Physician David De La Cruz HPI: 12/23 00:03 This 61 yrs old Male presents to ER via Ambulatory with complaints of Headache, Arm ms3 Pain. 00:03 The patient describes the headache as throbbing. Onset: The symptoms/episode ms3 began/occurred acutely, this morning. Associated signs and symptoms: The patient has no apparent associated signs or symptoms. Severity of symptoms: At its worst the pain was severe, in the emergency department the pain has improved, a " 5" out of "10". The symptoms are alleviated by remaining still, the symptoms are aggravated by movement. Historical: - Allergies: 12/22 23:52 No Known Allergies; kd3 - Home Meds: 23:52 Metoprolol Tartrate Oral [Active]; Benicar Oral [Active]; unknown cholesterol kd3 medication [Active]; - PMHx: 23:52 COVID; High Cholesterol; Hypertension; neuropathy; kd3 - Immunization history:: Adult Immunizations up to date, Client reports having NOT received the Covid vaccine. - Social history:: Smoking status: unknown. ROS: 12/23 00:03 Constitutional: Negative for fever, and chills. Eyes: Negative for injury, pain, ms3 redness, and discharge, Neck: Negative for injury, pain, and swelling, Cardiovascular: Negative for chest pain, and palpitations. Respiratory: Negative for shortness of breath, cough, wheezing, and pleuritic chest pain, Abdomen/GI: Negative for abdominal pain, nausea, vomiting, diarrhea, and constipation, MS/Extremity: Negative for injury and deformity, Skin: Negative for injury, rash, and discoloration, Psych: Negative for depression, anxiety, suicide ideation, homicidal ideation, and hallucinations. 00:03 Neuro: Positive for headache. ms3 Exam: 00:03 Constitutional: This is a well developed, well nourished patient who is awake, alert, ms3 and in no acute distress. Head/Face: Normocephalic, atraumatic. Neck: Trachea midline, no cervical lymphadenopathy. Supple, full range of motion without nuchal rigidity, or vertebral point tenderness. No Meningismus. Chest/axilla: Normal chest wall appearance and motion. Nontender with no deformity. Cardiovascular: Regular rate and rhythm with a normal S1 and S2. No gallops, murmurs, or rubs. Normal PMI, no JVD. No pulse deficits. Respiratory: Lungs have equal breath sounds bilaterally, clear to auscultation and percussion. No rales, rhonchi or wheezes noted. No increased work of breathing, no retractions or nasal flaring. Abdomen/GI: Soft, non-tender, with normal bowel sounds. No distension or tympany. No guarding or rebound. No evidence of tenderness throughout. Skin: Warm, dry with normal turgor. Normal color with no rashes, no lesions, and no evidence of cellulitis. MS/ Extremity: Pulses equal, no cyanosis. Neurovascular intact. Full, normal range of motion. Neuro: Awake and alert, GCS 15, oriented to person, place, time, and situation. Cranial nerves II-XII grossly intact. Motor strength 5/5 in all extremities. Sensory grossly intact. Cerebellar exam normal. Normal gait. Psych: Awake, alert, with orientation to person, place and time. Behavior, mood, and affect are within normal limits. Vital Signs: 12/22 23:49 Weight 92.99 kg; Height 6 ft. 1 in. (185.42 cm); Pain 10/10; kd3 23:57 BP 158 / 87; Pulse 78; Resp 19; Temp 97.7; Pulse Ox 100% on R/A; kd3 12/23 01:52 BP 155 / 82; Pulse 61; Resp 18; Pulse Ox 100% on R/A; ke1 03:02 BP 154 / 70; Pulse 64; Resp 16; Pulse Ox 99% ; Pain 7/10; tw5 03:25 Pain 5/10; tw5 12/22 23:49 Body Mass Index 27.05 (92.99 kg, 185.42 cm) kd3 MDM: 12/22 23:58 Patient medically screened. ms3 12/23 00:03 Differential diagnosis: cluster headache, intracerebral hemorrhage, meningitis, ms3 subarachnoid bleed, tension headache. 02:46 Data reviewed: vital signs, nurses notes, lab test result(s), CBC, electrolytes, ms3 radiologic studies, CT scan, plain films, and as a result, I will discharge patient. Counseling: I had a detailed discussion with the patient and/or guardian regarding: the historical points, exam findings, and any diagnostic results supporting the discharge/admit diagnosis, lab results, radiology results, to return to the emergency department if symptoms worsen or persist or if there are any questions or concerns that arise at home. ED course: Discussed labs, CT, physical exam findings with patient. Patient to follow-up with primary care physician in 2 to 3 days. Patient understands and agrees with plan. All questions were answered. Return precautions discussed include worsening symptoms, or any other concerns. On reevaluation patient is alert and oriented x4, in no apparent distress, nontoxic-appearing, speaking full sentences, ambulatory in emergency department. Discussed obtaining LP to r/o meningitis/SAH with patient and his and they decline. Risks of not obtaining LP discussed and patient understands and accepts risks.. 12/23 00:00 Order name: CBC with Diff; Complete Time: 00:40 ms3 12/23 00:00 Order name: BMP; Complete Time: 00:40 ms3 12/23 00:00 Order name: CT Head Brain wo Cont ms3 12/23 01:10 Order name: CT Head Angio ms3 12/23 01:10 Order name: CT Neck Angio ms3 Administered Medications: 00:11 Drug: Benadryl (diphenhydrAMINE) 25 mg Route: IVP; Site: right antecubital; tw5 03:01 Follow up: Response: No adverse reaction tw5 00:12 Drug: Reglan (metoCLOPramide) 10 mg Route: IVP; Site: right antecubital; tw5 03:01 Follow up: Response: No adverse reaction tw5 00:13 Drug: NS 0.9% 1000 ml Route: IV; Rate: 1000 ml; Site: right antecubital; tw5 03:25 Follow up: Response: No adverse reaction; IV Status: Completed infusion; IV Intake: tw5 1000ml 03:01 Drug: Valium (diazepam) 5 mg Route: PO; tw 03:25 Follow up: Pain 5/10 Adult; Response: No adverse reaction; Pain is decreased; RASS: tw5 Alert and Calm (0) Disposition Summary: 12/23/21 02:46 Discharge Ordered Location: Home ms3 Condition: Stable ms3 Diagnosis - Headache ms3 - neck pain ms3 Followup: ms3 - With: Lars Wheatley DO - When: 1 - 2 days - Reason: Recheck today's complaints Discharge Instructions: - Discharge Summary Sheet ms3 - Muscle Cramps and Spasms, [id number] ms3 - General Headache Without Cause, [id number] ms3 Forms: - Medication Reconciliation Form ms3 - Thank You Letter ms3 - Antibiotic Education ms3 - Prescription Opioid Use ms3 Prescriptions: - Cyclobenzaprine 10 mg Oral Tablet - take 1 tablet by ORAL route every 8 hours As needed; 30 tablet; Refills: 0, ms3 Product Selection Permitted Signatures: Dispatcher [employer] EDMS David De La Cruz DO DO ms3 Trinidad Mackay tw5 Citlaly Oropeza, RN RN kd3 Corrections: (The following items were deleted from the chart) 00:06 00:03 Constitutional: Negative for fever, and chills. Eyes: Negative for injury, pain, ms3 redness, and discharge, Neck: Negative for injury, pain, and swelling, Cardiovascular: Negative for chest pain, and palpitations. Respiratory: Negative for shortness of breath, cough, wheezing, and pleuritic chest pain, Abdomen/GI: Negative for abdominal pain, nausea, vomiting, diarrhea, and constipation, MS/Extremity: Negative for injury and deformity, Skin: Negative for injury, rash, and discoloration, Neuro: Negative for headache, weakness, numbness, tingling. Psych: Negative for depression, anxiety, suicide ideation, homicidal ideation, and hallucinations, ms3 00:07 00:03 Constitutional: This is a well developed, well nourished patient who is awake, ms3 alert, and in no acute distress. ms3
--- NOTE | 2021-12-23 02:47 | ER ---
Nurse's Notes [facility] Name: Omari Whitfield Age: 61 yrs Sex: Male : 1960 Arrival Date: 12/22/2021 Time: 23:42 Bed 6 Private MD: Diagnosis: Headache;neck pain Presentation: 12/22 23:49 Chief complaint: Patient states: I have a really bad headache that started this kd3 morning. it started on the left side of the back of my head and started moving around to the right side. I have not had an injury at all. I thought it was a muscle issue at first so I took meloxicam and cyclobenzaprine around 2100 this evening. Coronavirus screen: Vaccine status: Patient reports being unvaccinated. Ebola Screen: No symptoms or risks identified at this time. Initial Sepsis Screen: Does the patient meet any 2 criteria? No. Patient's initial sepsis screen is negative. Does the patient have a suspected source of infection? No. Patient's initial sepsis screen is negative. Risk Assessment: Do you want to hurt yourself or someone else? Patient reports no desire to harm self or others. Onset of symptoms was December 22, 2021. 23:49 Method Of Arrival: Ambulatory kd3 23:49 Acuity: GETACHEW 3 kd3 Triage Assessment: 23:52 Headache History: Denies prior headaches. General: Appears uncomfortable, Behavior is kd3 calm, cooperative. Pain: Pain currently is 10 out of 10 on a pain scale. Pain began gradually, Also complains of no other associated symptoms. Neuro: Level of Consciousness is awake, alert, obeys commands, Oriented to person, place, time, situation. Respiratory: Airway is patent Trachea midline Respiratory effort is even, unlabored, Respiratory pattern is regular. 12/23 00:11 Headache History:. tw5 Historical: - Allergies: 12/22 23:52 No Known Allergies; kd3 - Home Meds: 23:52 Metoprolol Tartrate Oral [Active]; Benicar Oral [Active]; unknown cholesterol kd3 medication [Active]; - PMHx: 23:52 COVID; High Cholesterol; Hypertension; neuropathy; kd3 - Immunization history:: Adult Immunizations up to date, Client reports having NOT received the Covid vaccine. - Social history:: Smoking status: unknown. Screenin:53 Abuse screen: Denies threats or abuse. Denies injuries from another. Nutritional kd3 screening: No deficits noted. Tuberculosis screening: No symptoms or risk factors identified. Fall Risk None identified. Assessment: 12/23 00:07 General: Reports "My neck is just killing me. I cannot find a comfortable position.". tw5 General: Reports. Pain: Complains of pain in right parietal area, occipital area and base of the skull Pain currently is 10 out of 10 on a pain scale. 00:10 General: Appears Behavior is quiet. Neuro: Level of Consciousness is awake, alert, tw5 obeys commands, Oriented to person, place, time, situation. Respiratory: Airway is patent Trachea midline. 03:02 Reassessment: No changes from previously documented assessment. Pain: Pain currently is tw5 7 out of 10 on a pain scale. Vital Signs: 12/22 23:49 Weight 92.99 kg; Height 6 ft. 1 in. (185.42 cm); Pain 10/10; kd3 23:57 BP 158 / 87; Pulse 78; Resp 19; Temp 97.7; Pulse Ox 100% on R/A; kd3 06 01:52 BP 155 / 82; Pulse 61; Resp 18; Pulse Ox 100% on R/A; ke1 03:02 BP 154 / 70; Pulse 64; Resp 16; Pulse Ox 99% ; Pain 7/10; tw5 03:25 Pain 5/10; tw5 06 23:49 Body Mass Index 27.05 (92.99 kg, 185.42 cm) kd3 ED Course: 12/22 23:42 Patient arrived in ED. ja2 23:44 Trinidad Mackay is Primary Nurse. tw5 23:45 David De La Cruz DO is Attending Physician. ms3 23:52 Triage completed. kd3 23:52 Arm band placed on. kd3 23:53 Patient has correct armband on for positive identification. kd3 12/23 00:07 Initial lab(s) drawn, by ED staff, sent to lab. Inserted saline lock: 18 gauge in right tw5 antecubital area, using aseptic technique. Blood collected. 00:11 No provider procedures requiring assistance completed. tw5 00:12 CBC with Diff Sent. tw5 00:12 BMP Sent. tw5 00:41 CT Head Brain wo Cont In Process Unspecified. EDMS 02:11 CT Head Angio In Process Unspecified. EDMS 02:11 CT Neck Angio In Process Unspecified. EDMS 02:45 Lars Wheatley DO is Referral Physician. ms3 03:25 IV discontinued, intact, bleeding controlled, No redness/swelling at site. Pressure tw5 dressing applied. Administered Medications: 00:11 Drug: Benadryl (diphenhydrAMINE) 25 mg Route: IVP; Site: right antecubital; tw5 03:01 Follow up: Response: No adverse reaction tw5 00:12 Drug: Reglan (metoCLOPramide) 10 mg Route: IVP; Site: right antecubital; tw5 03:01 Follow up: Response: No adverse reaction tw5 00:13 Drug: NS 0.9% 1000 ml Route: IV; Rate: 1000 ml; Site: right antecubital; tw5 03:25 Follow up: Response: No adverse reaction; IV Status: Completed infusion; IV Intake: tw5 1000ml 03:01 Drug: Valium (diazepam) 5 mg Route: PO; tw5 03:25 Follow up: Pain 5/10 Adult; Response: No adverse reaction; Pain is decreased; RASS: tw5 Alert and Calm (0) Medication: 12/22 23:58 VIS not applicable for this client. kd3 Intake: 12/23 03:25 IV: 1000ml; Total: 1000ml. tw5 Outcome: 02:46 Discharge ordered by . ms3 03:25 Discharged to home ambulatory, with family. tw5 03:25 Condition: improved 03:25 Discharge instructions given to patient, family, Instructed on discharge instructions, follow up and referral plans. Demonstrated understanding of instructions, follow-up care, medications, Prescriptions given X 1. 03:25 Patient left the ED. tw5 Signatures: Dispatcher [employer] EDMS David De La Cruz DO DO ms3 Maya Thorne Tiffany tw5 Citlaly Oropeza RN RN kd3 Dong Vasquez RN RN ke1
[2021-12-23] MEDS ORDERED: DIAZEPAM 5 MG TABLET ONE (03:05)
[2021-12-23 03:39] VITALS: TEMP 97.7
[2021-12-23 03:42] VITALS: BP 154/70; O2SAT 99
--- NOTE | 2021-12-25 12:34 | RAD REPORT ---
EXAM DESCRIPTION: CT Head Without Intravenous Contrast CLINICAL HISTORY: The patient is 61 years old and is Male; Headache, new or worsening TECHNIQUE: Axial computed tomography images of the head/brain without intravenous contrast. Sagitt al and coronal reformatted images were created and reviewed. This CT exam was performed using one o r more of the following dose reduction techniques: automated exposure control, adjustment of the mA and/or kV according to patient size, and/or use of iterative reconstruction technique. COMPARISON: No relevant prior studies available. FINDINGS: Brain: Unremarkable. No hemorrhage. No significant white matter disease. No edema. Ventricles: Unremarkable. No ventriculomegaly. Bones/joints: Unremarkable. No acute fracture. Soft tissues: Unremarkable. Sinuses: Unremarkable as visualized. Mastoid air cells: Unremarkable as visualized. No mastoid effusion. IMPRESSION: No acute intracranial abnormality. Electronically signed by: Td Gomez MD 12/23/2021 1:01 AM CDT Due to temporary technical issues with the PACS/Fluency reporting system, reports are being signed by the in house radiologists without review as a courtesy to insure prompt reporting. The interpreting radiologist is fully responsible for the content of the report.
--- NOTE | 2021-12-25 13:42 | RAD REPORT ---
EXAM DESCRIPTION: 1. CTA of the head with contrast. 2. CTA of the neck with contrast. CLINICAL HISTORY: 61 years, Male, Headache, new or worsening COMPARISON: 12/24/2019 TECHNIQUE: Axial CTA images of the head and neck obtained following the uncomplicated intravenous ad ministration of iodinated contrast. 3-D/MIP reformatted images available. This exam was performed acc ording to our departmental dose-optimization program, which includes automated exposure control, adju stment of the mA and/or kV according to patient size and/or use of iterative reconstruction technique . FINDINGS: CTA head: In the anterior circulation, the intracranial internal carotid arteries have normal course. Nonflow l imiting atherosclerotic plaque at the paraclinoid and supraclinoid intracranial internal carotid adilson neptali. The internal carotid arteries bifurcate into patent A1 and M1 segments of the anterior and midd le cerebral arteries respectively. No evidence of flow-limiting stenosis, aneurysm, occlusion, or dis section in the anterior circulation. The anterior communicating artery is patent. In the posterior circulation, the dominant left vertebral artery supplies the basilar artery. The rig ht vertebral artery terminates in the right PICA. The basilar artery predominantly terminates in the right posterior cerebral artery. The left posterior cerebral artery is a origin. The posterior cerebral arteries are patent.. No evidence of stenosis, aneurysm, occlusion, or dissection in the pos terior circulation. No definite acute intracranial abnormality identified. No acute abnormality of the osseous calvarium. Paranasal sinuses and mastoid air cells are well aerated. CTA NECK: Mild atherosclerotic calcification of the aortic arch.. The origin of the great vessels are widely pa tent. The right common carotid artery is widely patent and bifurcates into patent internal and external car otid arteries. Calcified and noncalcified atherosclerotic plaque of the proximal right internal carot id artery producing short segment 52% stenosis by NASCET criteria. No evidence of occlusion or dissec tion. The left common carotid artery is widely patent and bifurcates into patent internal and external norton tid arteries. Mild calcified and noncalcified atherosclerotic plaque of the proximal left internal ca rotid artery producing 15% stenosis by NASCET criteria. No evidence of occlusion or dissection. The cervical vertebral arteries are patent throughout their course. Dominant left vertebral artery. N o evidence of occlusion, stenosis, or dissection. No definite acute abnormalities in the neck soft tissues. No apical pneumothorax. No acute osseous ab normalities. Degenerative change of the cervical spine. IMPRESSION: 1. No evidence of flow-limiting stenosis, occlusion, or aneurysm in the intracranial a rterial circulation. 2. Short segment 52 % stenosis of the proximal right cervical internal carotid artery. 3. Approximately 15 % stenosis of the proximal left cervical internal carotid artery. Electronically signed by: Nathan Chavez 12/23/2021 2:33 AM CDT Due to temporary technical issues with the PACS/Fluency reporting system, reports are being signed by the in house radiologists without review as a courtesy to insure prompt reporting. The interpreting radiologist is fully responsible for the content of the report.
== END 2021-12-23 03:25 | disposition home or self-care (01) ==
LOC: ER 23:39
DX: R51.9 Headache, unspecified (principal); M54.2 Cervicalgia; I10 Essential (primary) hypertension; E78.00 Pure hypercholesterolemia, unspecified; Z86.16 Personal history of COVID-19
CPT/HCPCS: 96361; 85025; 80048; 36415; 70450; 70496; 70498; 96375; 96374; 99284; Q9967; J2765; J1200; J7030